=== PATIENT | female | born 1955 | race Caucasian/White ===

== ENCOUNTER → 2024-02-07 11:52 | Outpatient (REF) | payer MEDICARE, OTHER, SELFPAY | LOC: HWWDC 11:52 | PROVIDERS: ATTENDING PHYSICIAN Family Medicine | DX: Z12.31 Encounter for screening mammogram for malignant neoplasm of breast (principal) | CPT/HCPCS: 77063; 77067 ==

== ENCOUNTER → 2024-03-19 14:27 | Outpatient (REF) | payer MEDICARE, OTHER, SELFPAY | LOC: RAD 14:27 | PROVIDERS: ATTENDING PHYSICIAN Internal Medicine Rheumatology; FAMILY PHYSICIAN Family Medicine | DX: M85.89 Other specified disorders of bone density and structure, multiple sites (principal) | CPT/HCPCS: 77080 ==

== ENCOUNTER → 2024-12-12 06:56 | Outpatient (REF) | payer MEDICARE, OTHER, SELFPAY ==
[2024-12-12 08:40] LABS: ALT (SGPT) 41 U/L (0-35); AST (SGOT) 38 U/L (14-36); Albumin 4.3 g/dl (3.5-5.0); Alkaline Phosphatase 65 U/L (38-126); Blood Urea Nitrogen 21 mg/dl (7-17); Calcium 9.9 mg/dl (8.4-10.2); Carbon Dioxide 31 mmol/L (22-30); Chloride 108 mmol/L (98-107); Glucose 85 mg/dl (70-99); HDL Cholesterol 55 mg/dl; LDL Cholesterol, Calculated 139 mg/dl; Potassium 4.2 mmol/L (3.5-5.1); Sodium 141 mmol/L (135-145); Total Protein 6.9 g/dl (6.3-8.2); Very Low Density Lipoprotein 31 mg/dl (0-30); eGFR > 60.00
[2024-12-12 09:19] LABS: TSH 2.54 uIU/ml (0.47-4.68)
[2024-12-12 09:34] LABS: Glycohemoglobin (HgbA1c) 5.0 % (4.0-5.6)
== END ==
LOC: REG 06:56
PROVIDERS: ATTENDING PHYSICIAN Family Medicine
DX: I10 Essential (primary) hypertension (principal); E03.9 Hypothyroidism, unspecified; R73.9 Hyperglycemia, unspecified
CPT/HCPCS: 36415; 80053; 80061; 83036; 84439; 84443

== ENCOUNTER 2025-02-05 16:37 | Emergency (ER) | payer MEDICARE, OTHER, SELFPAY ==
[2025-02-05 16:38] VITALS: BMI 22.0
[2025-02-05 16:43] VITALS: BP 137/70
--- NOTE | 2025-02-05 17:09 | ED.GENMED ---
History of Present Illness
General
Chief Complaint: Chest Pain
Source: patient
Exam Limitations: none
Time Seen by Provider: 02/05/25 16:56
History of Present Illness
History of Present Illness:
69-year-old female with history of giant cell arteritis hypothyroidism and hypertension presents with left-sided chest discomfort. This sharp in nature and pleuritic. Of note, patient had a cataract procedure performed this morning at 11. Her
pain started at 2. She thought is indigestion but the pain did not go away and she presents here. She is on a baby aspirin but no other blood thinners. No recent travel. No leg swelling or calf pain. No other complaints at this time
Past History
Past History
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
ED Past Surgical History: Bowel resection (Perforated diverticulitis with abscess and colostomy) and Other (Parathyroidectomy)
Patient has exhibited threatening behavior?: No
PSI?: No
Social History
Tobacco: Former smoker
Alcohol: None
Personal:
Living: with family
Phy Exam
Physical Exam
Physical Exam:
General: Well-appearing female no acute respiratory distress
HEENT: Normal cephalic atraumatic heart shield over left eye: Regular rate and rhythm
Lungs: CTA Bilaterally
Ext: No cyanosis or edema.
skin: Warm, no rash
Scores
Heart Score for Chest Pain Patients
STEMI patient?: No
History: Slightly or Non-Suspicious
ECG: Normal
Age: >/= 65 years
Risk Factors: 1 or 2 Risk Factors
Troponin: </= Normal Limit
Heart Score for Chest Pain Patients: 3
Heart Score Risk: 2.5% MACE over next 6 weeks
Course
Orders/Labs/Results
Orders:
Orders
02/05/25 16:39
EKG [Electrocardiogram (*1)] Urgent
Reason for Study: Chest Pain
EKG- Treatment ONCE
02/05/25 17:08
CT Chest PE Study Urgent
Comment:
Reason For Exam: pleuritic left chest pain
02/05/25 17:11
Complete Blood Count/With Diff Urgent
Comprehensive Metabolic Panel Urgent
Troponin I Urgent
02/05/25 19:24
Troponin I Urgent
02/05/25 19:33
Electrocardiogram (*1) Urgent
Reason for Study: Other
Other Reason for Exam: Possible Sepsis
EKG- Treatment ONCE
Abnormal Lab Results
02/05/25
17:11
WBC 4.3 L 10^3/uL
(4.8-10.8)
RBC 3.77 L 10^6/uL
(4.20-5.40)
Hgb 11.8 L g/dL
(12.0-16.0)
Hct 35.3 L %
(37.0-47.0)
MCH 31.3 H pg
(27.0-31.0)
MPV 11.9 H fL
(7.4-10.4)
Neutrophils % 33.3 L %
(42.2-75.2)
Monocytes % 13.8 H %
(1.7-9.3)
Eosinophils % 6.1 H %
(0-6)
Glucose 115 H mg/dl
(70-99)
AST 40 H U/L
(14-36)
ALT 44 H U/L
(0-35)
02/05/25 17:11
02/05/25 17:11
Vital Signs
Initial and Last Documented VS:
Initial Vital Signs
Temp Pulse Resp BP Pulse Ox
98.6 F 69 18 137/70 98
02/05/25 16:43 02/05/25 16:43 02/05/25 16:43 02/05/25 16:43 02/05/25 16:43
Last Documented Vital Signs
Temp Pulse Resp BP Pulse Ox
98.6 F 76 22 136/75 96
02/05/25 16:43 02/05/25 21:00 02/05/25 21:00 02/05/25 21:00 02/05/25 21:00
MDM/Problems Addressed
Differential Diagnosis Includes:
Left-sided chest discomfort starting at 2 PM today. Consider ACS versus PE versus GI related discomfort. I believe the patient's D-dimer has a high chance of being elevated secondary to her cataract procedure today. Given the pleuritic nature of
discomfort and her age, will order CT PE study of the chest. I reviewed the EKG done through triage personally and it shows sinus rhythm with a rate of 71 no ischemic changes. Check troponin. Vital signs are stable. Patient also notes she has
been sick with upper respiratory symptoms. Consider pneumonia as a source of discomfort
*Pulse Oximetry
SaO2: 98
Oxygen Mode of Delivery: Room air
Patient hypoxic: no
*Critical Care Note
Total Time (30-74mins, 75-104mins- exclusive of procedures): Not Applicable
Update Note
Update Note:
Patient reexamined chest pain completely resolved. Both troponins are within normal range but slightly detectable. PE study negative. No sign of acute coronary syndrome or PE on today's exam. Will discharge patient have her follow-up with family
doctor and cardiology.
ED Attending Note
-
Portions of this chart may have been created with voice recognition software.� Occasional wrong word or��sound alike� substitutions may have occurred due to the inherent limitations of voice recognition software.
Discharge Plan
Departure
Patient Disposition: Home (Routine Discharge)
Date of Disposition: 02/05/25
Time of Disposition: 21:42
Patient with high blood pressure during this ER visit?: No
Discharge Problem:
Chest pain
Instructions: Chest Pain CBC Follow Up
Prescriptions:
No Action
levothyroxine 50 MCG tablet
50 mcg PO DAILY
methylprednisolone 8 MG tablet
20 mg PO BID
aspirin 81 MG tablet,chewable
81 mg PO DAILY
lisinopril 5 MG tablet
5 mg PO DAILY
duloxetine 30 MG capsule,delayed release(DR/EC)
30 mg PO HS
tocilizumab [Actemra] 200 MG/10 ML solution
162 mg SC WEEKLY
nystatin 5 ML suspension
5 ml PO QID Qty: 1 0RF
Rx Instructions:
continue use while on antibiotics
metronidazole 500 MG tablet
500 mg PO Q8 Qty: 15 0RF
sulfamethoxazole-trimethoprim 1 TABLET tablet
1 tab PO BID Qty: 40 0RF
Rx Instructions:
TAKE ONE TABLET TWICE A DAY X 5 DAYS THEN TAKE ONE TABLET ONCE A DAY
hydromorphone 2 MG tablet
2 mg PO Q6HPRN PRN (Reason: severe pain ) Qty: 15 0RF
pantoprazole 40 MG tablet,delayed release (DR/EC)
40 mg PO DAILY Qty: 30 0RF
cyclosporine [Restasis] 10 DROPS dropperette
1 drops ophthalmic (eye) BID 0RF
carboxymethylcellulose sodium [TheraTears] 6 DROPS dropperette,gel
1 drops ophthalmic (eye) DAILYPRN PRN (Reason: dry eye) 0RF
metformin 500 MG tablet
500 mg PO BID Qty: 60 0RF
Rx Instructions:
take one tablet twice a day. If you have diarrhea then decrease to daily.
furosemide 20 MG tablet
20 mg PO DAILY Qty: 5 0RF
Rx Instructions:
stop taking if swelling resolved.
hydromorphone 2 MG tablet
2 mg PO Q6HPRN PRN (Reason: flank pain) Qty: 15 0RF
ondansetron 4 MG tablet,disintegrating
4 mg PO TIDPRN PRN (Reason: nausea/vomiting) Qty: 12 0RF
Referrals:
Aleksandr Trinh MD [Family Provider, Family Practice]
Activity Restrictions/Additional Instructions:
Please return here for worsening symptoms. Follow-up with your family doctor and/or director of pulmonary unit otherwise
Interventions
Interventions:
*Risk Screen - Suicide Last Done: 02/05/25 16:43
*General Assessment Last Done: 02/05/25 16:43
*Neglect/Abuse Screening Last Done: 02/05/25 16:43
*ED- Fall Risk Assessment Last Done: 02/05/25 17:13
ED- Cardiac Assessment Last Done: 02/05/25 17:13
Discharge Date and Time
Print Language: KOREAN
[2025-02-05 17:13] VITALS: BP 143/77
[2025-02-05 17:27] LABS: Hematocrit 35.3 % (37.0-47.0); Hemoglobin 11.8 g/dL (12.0-16.0); Mean Corp Hgb Conc. 33.4 g/dL (33.0-37.0); Mean Corpuscular Volume 93.6 fL (81.0-99.0); Nucleated Red Blood Cells % 0 %; Platelet Count 187 10^3/uL (130-400); Red Cell Dist. Width 12.7 % (11.5-14.5)
[2025-02-05 17:39] LABS: ALT (SGPT) 44 U/L (0-35); AST (SGOT) 40 U/L (14-36); Albumin 4.0 g/dl (3.5-5.0); Alkaline Phosphatase 78 U/L (38-126); Blood Urea Nitrogen 13 mg/dl (7-17); Calcium 9.1 mg/dl (8.4-10.2); Carbon Dioxide 26 mmol/L (22-30); Chloride 107 mmol/L (98-107); Estimated Creatinine Clearance 80 ml/min; Glucose 115 mg/dl (70-99); Potassium 3.7 mmol/L (3.5-5.1); Sodium 137 mmol/L (135-145); Total Protein 6.7 g/dl (6.3-8.2); eGFR > 60.00
[2025-02-05 17:49] LABS: Troponin I 0.014 ng/ml
[2025-02-05 20:00] VITALS: BP 161/91
[2025-02-05 20:01] LABS: Troponin I 0.022 ng/ml
[2025-02-05 20:50] VITALS: BP 126/86
[2025-02-05 21:00] VITALS: BP 136/75
== END 2025-02-05 22:16 | disposition home or self-care (01) ==
LOC: EMR 16:37
PROVIDERS: Physician Assistant; EMERGENCY PHYSICIAN Emergency Medicine; FAMILY PHYSICIAN Family Medicine
DX: R07.89 Other chest pain (principal); E03.9 Hypothyroidism, unspecified; I10 Essential (primary) hypertension; Z87.891 Personal history of nicotine dependence; Z93.3 Colostomy status; Z98.49 Cataract extraction status, unspecified eye
CPT/HCPCS: 99284; 71275; 80053; 84484; 85025; 93005; Q9967

== ENCOUNTER → 2025-02-14 07:22 | Outpatient (REF) | payer MEDICARE, OTHER, SELFPAY | LOC: PAVMRI 07:22 | PROVIDERS: ATTENDING PHYSICIAN Specialist; FAMILY PHYSICIAN Family Medicine | DX: M25.552 Pain in left hip (principal) | CPT/HCPCS: 73721 ==

== ENCOUNTER → 2025-02-25 15:01 | Outpatient (REF) | payer MEDICARE, OTHER, SELFPAY | LOC: HWRCS 15:01 | PROVIDERS: ATTENDING PHYSICIAN Internal Medicine Cardiovascular Disease; FAMILY PHYSICIAN Family Medicine | DX: R07.89 Other chest pain (principal); R06.09 Other forms of dyspnea; I10 Essential (primary) hypertension | CPT/HCPCS: 93306 ==

== ENCOUNTER → 2025-02-27 09:12 | Outpatient (REF) | payer MEDICARE, OTHER, SELFPAY | LOC: RCS 09:12 | PROVIDERS: ATTENDING PHYSICIAN Internal Medicine Cardiovascular Disease; FAMILY PHYSICIAN Family Medicine | DX: R07.89 Other chest pain (principal); R06.09 Other forms of dyspnea; I10 Essential (primary) hypertension | CPT/HCPCS: 93017; 93350 ==

== ENCOUNTER 2025-03-04 06:16 | Day surgery (SDC) | payer MEDICARE, OTHER, SELFPAY | END 2025-03-04 10:01 | disposition home or self-care (01) | LOC: GI 06:16 | PROVIDERS: ATTENDING PHYSICIAN Surgery | DX: Z12.11 Encounter for screening for malignant neoplasm of colon (principal); K62.89 Other specified diseases of anus and rectum; Z83.719 Family history of colon polyps, unspecified | CPT/HCPCS: G0105 ==

== ENCOUNTER 2025-03-05 05:56 | Inpatient (IN) | payer MEDICARE, OTHER, SELFPAY ==
[2025-02-20 08:57] LABS: Hematocrit 41.0 % (37.0-47.0); Hemoglobin 13.4 g/dL (12.0-16.0); Mean Corp Hgb Conc. 32.7 g/dL (33.0-37.0); Mean Corpuscular Volume 97.6 fL (81.0-99.0); Platelet Count 176 10^3/uL (130-400); Red Cell Dist. Width 12.3 % (11.5-14.5)
[2025-02-20 09:04] LABS: INR 1.05; PT 14.0 Sec (11.4-14.6)
[2025-02-20 09:05] LABS: APTT 29.0 Sec (23.4-35.0)
[2025-02-20 09:20] LABS: ALT (SGPT) 43 U/L (0-35); AST (SGOT) 42 U/L (14-36); Albumin 4.4 g/dl (3.5-5.0); Alkaline Phosphatase 76 U/L (38-126); Blood Urea Nitrogen 14 mg/dl (7-17); Calcium 9.7 mg/dl (8.4-10.2); Carbon Dioxide 33 mmol/L (22-30); Chloride 105 mmol/L (98-107); Glucose 83 mg/dl (70-99); Potassium 3.9 mmol/L (3.5-5.1); Sodium 141 mmol/L (135-145); Total Protein 7.1 g/dl (6.3-8.2); eGFR > 60.00
[2025-02-20 09:28] LABS: Glycohemoglobin (HgbA1c) 5.0 % (4.0-5.6)
[2025-02-20 13:57] VITALS: BMI 22.2
--- NOTE | 2025-02-25 10:30 | PTCARENOTE ---
Abn ECG, Vicenta at Dr. Link office aware, Patient following up with Dr. Troncoso, Echo scheduled for 02/25 and Stress scheduled for 02/27.
[2025-03-05] VITALS (24 sets, daily range): BP systolic 20–138; BP diastolic 48–76; BMI 22.2
[2025-03-05] MEDS: RELISTOR 12 MG SC (06:38)
[2025-03-05] MEDS: NORMOSOL-R/PLASMALYTE-A 1000 IV ×2 (06:38→16:02)
[2025-03-05] MEDS: TYLENOL 1000 MG PO (06:38)
[2025-03-05] MEDS: NEURONTIN 600 MG PO (06:38)
--- NOTE | 2025-03-05 11:56 | W.IMMPOSTOP ---
Surgical Immed Post Op Note
-
Primary Surgeon: Linwood Link MD
Assisting Surgeon: ALISON Hutchinson; Afshan Diallo PAC; LOR Ballard
Pre-op Diagnosis: 1) colostomy 2) history of diverticulitis
Post-op Diagnosis: same
Procedure Performed: 1) robotic colostomy takedown 2) partial colectomy (resection of upper rectal stump/rectosigmoid junction) 3) loop ileostomy creation 4) flexible sigmoidoscopy
Anesthesia Type: general plus local
Specimen / Cultures: 1) colostomy 2) upper rectal stump/rectosigmoid junction
Estimated Blood Loss: 50 cc
Complications: no immediate
Operative Findings: narrow upper rectum
#19 Napoleon in pelvis.
Zhong/stents/ureteral ICG by Dr. Villa.
Will send to med surg.
[2025-03-05 13:13] LABS: Blood Urea Nitrogen 9 mg/dl (7-17); Calcium 8.1 mg/dl (8.4-10.2); Carbon Dioxide 25 mmol/L (22-30); Chloride 107 mmol/L (98-107); Estimated Creatinine Clearance 65 ml/min; Glucose 163 mg/dl (70-99); Potassium 3.5 mmol/L (3.5-5.1); Sodium 140 mmol/L (135-145); eGFR > 60.00
[2025-03-05 13:15] LABS: Hematocrit 37.4 % (37.0-47.0); Hemoglobin 12.1 g/dL (12.0-16.0); Mean Corp Hgb Conc. 32.4 g/dL (33.0-37.0); Mean Corpuscular Volume 94.7 fL (81.0-99.0); Nucleated Red Blood Cells % 0 %; Platelet Count 170 10^3/uL (130-400); Red Cell Dist. Width 12.2 % (11.5-14.5)
[2025-03-05] MEDS: DILAUDID 0.25 MG IV ×2 (13:53→15:38)
[2025-03-05] MEDS: TYLENOL 650 MG PO ×2 (16:31→20:08)
[2025-03-05] MEDS: TORADOL 10 MG IV (17:33)
--- NOTE | 2025-03-05 17:51 | PTCARENOTE ---
1600 Pt arrived from PACU. AAOX3. VSS. IVF infusing. garcia draining bloody urine. R sided ileostomy, RUQ TROY drain with sanguinous output. Oriented to room and call hernandez. admission assessment complete. bed locked and in lowest position.
[2025-03-05] MEDS: CYMBALTA DELAYED RELEASE 20 MG PO (21:06)
[2025-03-05] MEDS: LOW STRENGTH ASPIRIN 81 MG PO (21:08)
[2025-03-05] MEDS: SYNTHROID 50 MCG PO (21:08)
[2025-03-05] MEDS: NORVASC PO (21:09)
[2025-03-06] VITALS (7 sets, daily range): BP systolic 119–152; BP diastolic 66–78; PULSE 79–81; O2SAT 99
[2025-03-06] MEDS: TORADOL 10 MG IV ×4 (00:35→18:04)
[2025-03-06] MEDS: TYLENOL PO ×5 (00:40→20:32)
[2025-03-06] MEDS: NORMOSOL-R/PLASMALYTE-A 1000 IV ×2 (01:55→08:35)
[2025-03-06 07:43] LABS: Hematocrit 33.6 % (37.0-47.0); Hemoglobin 11.2 g/dL (12.0-16.0); Mean Corp Hgb Conc. 33.3 g/dL (33.0-37.0); Mean Corpuscular Volume 94.9 fL (81.0-99.0); Nucleated Red Blood Cells % 0 %; Platelet Count 170 10^3/uL (130-400); Red Cell Dist. Width 12.2 % (11.5-14.5)
[2025-03-06 08:02] LABS: Blood Urea Nitrogen 12 mg/dl (7-17); Calcium 8.9 mg/dl (8.4-10.2); Carbon Dioxide 26 mmol/L (22-30); Chloride 109 mmol/L (98-107); Estimated Creatinine Clearance 57 ml/min; Glucose 101 mg/dl (70-99); Potassium 4.3 mmol/L (3.5-5.1); Sodium 136 mmol/L (135-145); eGFR > 60.00
[2025-03-06] MEDS: TYLENOL 650 MG PO (08:35)
[2025-03-06] MEDS: CLARITIN 10 MG PO (08:35)
[2025-03-06] MEDS: COZAAR 100 MG PO (08:35)
[2025-03-06] MEDS: DILAUDID 0.25 MG IV ×2 (08:59→16:07)
--- NOTE | 2025-03-06 09:39 | W.PN.CRS1 ---
Today's Communication / Plan
-
clears
lovenox
d/c garcia/stent
OOB
Assessment/Plan
-
POD#1 1) robotic colostomy takedown 2) partial colectomy (resection of upper rectal stump/rectosigmoid junction) 3) loop ileostomy creation 4) flexible sigmoidoscopy
WBC: 8.0, RBC: 11.2 (12.1, 13.4)
-Advance diet to clears
-Maintain IVFS until tolerating po intake
-OKay to shower
-OOB with PT/OT
-OR pathology pending
-Stent removed at bedside. Okay to d/c garcia.
-Pain control: Tyelnol/Toradol pending, Diluadid PRN
-Maintain TROY until d/c
-Wound RN for ileostomy teaching
-Hold autoimmune medication for 1 week
-Start lovenox for DVT prophylaxis, TEDS/SCDS in place
Subjective Data
Procedure
03/05/2025- 1) robotic colostomy takedown 2) partial colectomy (resection of upper rectal stump/rectosigmoid junction) 3) loop ileostomy creation 4) flexible sigmoidoscopy
Subjective Data
Date of Service: March 06, 2025
Patient states she feels well. She has some soreness but otherwise her pain is controlled. Denies nausea or vomiting. Tolerating clears.
Objective Data
-
Vital Signs
Temp Pulse Resp BP Pulse Ox
98.9 F 80 18 119/66 97
03/06/25 08:00 03/06/25 08:00 03/06/25 08:00 03/06/25 08:00 03/06/25 08:00
Intake & Output
03/05/25 03/06/25 03/07/25
06:59 06:59 06:59
Intake Total 200 / 200 300 / 300
Output Total 2195 / 2195 725 / 725
Balance -1994 / - / -
Intake:
IV fluids (Total) 200 / 200 300 / 300
normosol 200 / 200
Output:
Liquid stool amount 100 / 100 350 / 350
Ileostomy 100 / 100 350 / 350
Drain Output (Total)
Right Middle Abdomen Alonzo-
Jessica
Urine, Garcia 1999 / 1999 375 / 375
Lab Results
03/06/25 06:47
03/06/25 06:47
Physical Exam
-
General: No Acute Distress and AOx3
Abdomen: Soft, Non Distended, Non Tender and Other (ileostomy warm and pink with brain in place)
Skin: Warm and Dry
Incision: Clear, Dry, Intact
--- NOTE | 2025-03-06 10:18 | CM ---
CM following re: discharge planning.
Reviewed pt's chart, met with pt and pt's at bedside.
Pt is a 69 year old female, admitted with primary dx of colostomy, history of diverticulitis. POD#1 s/p robotic colostomy takedown 2) partial colectomy (resection of upper rectal stump/rectosigmoid junction) 3) loop ileostomy creation 4) flexible
sigmoidoscopy.
Pt reports she lives with , son and his family in a 2SH, 2 steps to enter. Pt described herself as independent in all areas [employer], has a walker and a cane and does not use them. Pt reports she is very weak and she expressed her desire to go to
a SNF for a short term rehab. Both pt and her are aware that PT and OT will evaluate the pt to determine a level of care at discharge. Following SNF preferred: [facility], [facility], [facility]. CM will make a referral to requested
SNF after PT/OT evaluations and recommendations.
PT and OT evaluations pending.
PCP: Aleksandr Trinh
Pharmacy: [facility]
D/C plan: Pt requested SNF level of care. Awaiting for PT/OT evaluation and confirmation
CM will follow with discharge plan updates as hospitalization progresses
--- NOTE | 2025-03-06 11:30 | WOUNDNOTE ---
[facility] RN note: Patient s/p loop ileostomy yesterday. Stoma pink, budded with red rubber bridge in place. Appliance intact. Patient sitting in recliner chair. Skin on heels intact. Ostomy supplies given (Radha wafer # [id number], Roseanna seals, [place]
pouch # [id number]). Patient was given an ileostomy teaching folder during pre op stoma marking outpatient visit. Patient declined a Radha secure starter kit order. She knows how to change an ostomy appliance as she had a colostomy prior to surgery.
Reviewed appliance change including using an Roseanna seal with patient. Patient's pouch emptied for liquid dark brown effluent. Appliance change due on Sunday whether home with or SNF or here.
--- NOTE | 2025-03-06 11:30 | WOUNDNOTE ---
[facility] RN note: Patient s/p loop ileostomy yesterday. Stoma pink, budded with red rubber bridge in place. Appliance intact. Patient sitting in recliner chair. Skin on heels intact. Ostomy supplies given (Radha wafer # [id number], Roseanna seals, [place]
pouch # [id number]). Patient was given an ileostomy teaching folder during pre op stoma marking outpatient visit. Patient declined a Radha secure starter kit order. She knows how to change an ostomy appliance as she had a colostomy prior to surgery.
Reviewed appliance change including using an Roseanna seal with patient. Patient's pouch emptied for liquid dark brown effluent. Appliance change due on Sunday whether home with VN or here.
--- NOTE | 2025-03-06 14:01 | PTOTSP ---
pt currently requires supervision to no assistance to complete simple ADLs, functional transfers, ambulation. no acute OT needs identified at this time, will sign off.
[2025-03-06] MEDS: LOVENOX 40 MG SC (16:06)
[2025-03-06] MEDS: NORMOSOL-R/PLASMALYTE-A IV (20:31)
[2025-03-06] MEDS: NORVASC 5 MG PO (22:10)
[2025-03-06] MEDS: LOW STRENGTH ASPIRIN 81 MG PO (22:10)
[2025-03-06] MEDS: SYNTHROID 50 MCG PO (22:10)
[2025-03-06] MEDS: CYMBALTA DELAYED RELEASE 20 MG PO (22:10)
[2025-03-06] MEDS: DILAUDID 0.5 MG IV (22:13)
[2025-03-07] MEDS: TORADOL 10 MG IV ×4 (01:03→16:55)
[2025-03-07] MEDS: TYLENOL PO ×6 (01:04→19:59)
[2025-03-07] MEDS: DILAUDID 0.5 MG IV ×2 (03:26→23:34)
[2025-03-07 06:00] VITALS: BMI 21.8
[2025-03-07 07:30] VITALS: BP 113/66
[2025-03-07 07:30] LABS: Hematocrit 38.2 % (37.0-47.0); Hemoglobin 11.9 g/dL (12.0-16.0); Mean Corp Hgb Conc. 31.2 g/dL (33.0-37.0); Mean Corpuscular Volume 99.7 fL (81.0-99.0); Nucleated Red Blood Cells % 0 %; Platelet Count 169 10^3/uL (130-400); Red Cell Dist. Width 12.6 % (11.5-14.5)
[2025-03-07 08:06] LABS: Blood Urea Nitrogen 13 mg/dl (7-17); Calcium 9.2 mg/dl (8.4-10.2); Carbon Dioxide 27 mmol/L (22-30); Chloride 108 mmol/L (98-107); Estimated Creatinine Clearance 65 ml/min; Glucose 80 mg/dl (70-99); Potassium 3.7 mmol/L (3.5-5.1); Sodium 135 mmol/L (135-145); eGFR > 60.00
[2025-03-07] MEDS: CLARITIN 10 MG PO (08:39)
[2025-03-07] MEDS: COZAAR 100 MG PO (08:39)
--- NOTE | 2025-03-07 09:54 | W.PN.CRS1 ---
Addendum entered and electronically signed by Robert Michelle MD 03/07/25 10:06:
I saw and examined the patient independently.
The Pain Management Specialist's note was reviewed and I agree with the note, assessment and plan except where noted below.
Comment: This is a 69-year-old female postoperative day 2 from a robotic colostomy takedown, partial colectomy with colorectal anastomosis and upstream diverting loop ileostomy creation. Doing well, expected postoperative course.
Regular diet
Anticipate discharge tomorrow without a drain.
Original Note:
Today's Communication / Plan
-
regular diet
dressing change later today
Assessment/Plan
-
POD#2 1) robotic colostomy takedown 2) partial colectomy (resection of upper rectal stump/rectosigmoid junction) 3) loop ileostomy creation 4) flexible sigmoidoscopy
WBC: 7.7 (8.0), RBC: 11.9 (11.2, 12.1, 13.4)
-Advance diet to regular
-OKay to shower
-OOB with PT/OT
-OR pathology pending
-Voiding post garcia removal
-Pain control: Tyelnol/Toradol pending, Diluadid PRN
-Maintain TROY until d/c
-Wound RN for ileostomy teaching
-Hold autoimmune medication for 1 week
-Lovenox for DVT prophylaxis, TEDS/SCDS in place
-Colostomy site dressing to be changed today
-Dispo: anticipate tomorrow
Subjective Data
Procedure
03/05/2025- 1) robotic colostomy takedown 2) partial colectomy (resection of upper rectal stump/rectosigmoid junction) 3) loop ileostomy creation 4) flexible sigmoidoscopy
Subjective Data
Date of Service: March 07, 2025
Patient states she is very hungry. Her pain is more controlled today. She has flatus and some liquid stool. Denies nausea or vomiting.
Objective Data
-
Vital Signs
Temp Pulse Resp BP Pulse Ox
98.1 F 71 16 113/66 96
03/07/25 07:30 03/07/25 07:30 03/07/25 07:30 03/07/25 07:30 03/07/25 07:30
Intake & Output
03/06/25 03/07/25 03/08/25
06:59 06:59 06:59
Intake Total 200 / 200 1880 / 1880 480 / 480
Output Total 2195 / 2195 2540 / 2540
Balance -1994 / -1994 - / -660 480 / 480
Intake:
Oral fluids 1580 / 1580 480 / 480
IV fluids (Total) 200 / 200 300 / 300
normosol 200 / 200
Output:
Liquid stool amount 100 / 100 1400 / 1400
Ileostomy 100 / 100 1400 / 1400
Drain Output (Total)
Right Middle Abdomen Alonzo-
Jessica
Urine, Garcia 1999 / 1999 375 / 375
Urine, Voided 700 / 700
Other:
Number of approximated MODERATE 2
amounts of urine
Lab Results
03/07/25 06:00
03/07/25 06:00
Physical Exam
-
General: No Acute Distress and AOx3
Abdomen: Soft, Non Distended, Non Tender and Other (ostomy warm and pink with flatus and liquid stool)
Skin: Warm and Dry
Wound: No Signs of Infection
Incision: Clear, Dry, Intact
[2025-03-07] MEDS: DILAUDID 0.25 MG IV ×2 (14:42→20:03)
[2025-03-07 15:25] VITALS: BP 108/69
[2025-03-07] MEDS: LOVENOX 40 MG SC (16:55)
[2025-03-07] MEDS: LOW STRENGTH ASPIRIN 81 MG PO (22:06)
[2025-03-07] MEDS: SYNTHROID 50 MCG PO (22:06)
[2025-03-07] MEDS: CYMBALTA DELAYED RELEASE 20 MG PO (22:06)
[2025-03-07] MEDS: NORVASC 5 MG PO (22:06)
[2025-03-07 23:17] VITALS: BP 116/74
[2025-03-08] MEDS: TYLENOL PO ×6 (00:46→20:25)
[2025-03-08] MEDS: TORADOL 10 MG IV ×5 (00:52→23:37)
[2025-03-08] MEDS: DILAUDID 0.25 MG IV (05:34)
[2025-03-08 06:00] VITALS: BMI 21.6
[2025-03-08 07:22] VITALS: BP 122/71
[2025-03-08] MEDS: COZAAR 100 MG PO (08:19)
[2025-03-08] MEDS: CLARITIN 10 MG PO (08:19)
--- NOTE | 2025-03-08 10:14 | W.PN.CRS1 ---
Today's Communication / Plan
-
Pain management
Dispo planning
Assessment/Plan
-
69 yo female with a h/o diverticulitis and colostomy POD#3 1) robotic colostomy takedown 2) partial colectomy (resection of upper rectal stump/rectosigmoid junction) 3) loop ileostomy creation 4) flexible sigmoidoscopy
AFVSS
WBC normal. H/H stable
Good bowel recovery, not all stoma outputs accounted for in outputs as she has been emptying herself
Plan:
-Continue regular diet
-TROY removed at bedside
-Okay to shower
-OOB with PT/OT
-OR pathology pending
-Pain control: Tyelnol/Toradol pending, Diluadid po and IV PRN (oxycodone allergy)
-Wound RN following
-Hold autoimmune medication for 1 week
-Follow outputs closely, may need Imodium if high outputs from ileostomy
-Lovenox for DVT prophylaxis, TEDS/SCDS in place
-Colostomy site dressing changed at bedside
Anticipate discharge later tonight vs more likely tomorrow once pain well managed. Oral diluadid added.
Subjective Data
Procedure
03/05/2025- 1) robotic colostomy takedown 2) partial colectomy (resection of upper rectal stump/rectosigmoid junction) 3) loop ileostomy creation 4) flexible sigmoidoscopy
Subjective Data
Date of Service: March 08, 2025
Pt seen and examined at bedside with Dr. Michelle. Herberties n/v. Tolerating diet. Changing stoma appliance herself this am. Having some difficulties managing her pain but improving from yesterday.
Objective Data
-
Vital Signs
Temp Pulse Resp BP Pulse Ox
98.1 F 70 16 122/71 97
03/08/25 07:22 03/08/25 07:22 03/08/25 07:22 03/08/25 07:22 03/08/25 07:22
Intake & Output
03/07/25 03/08/25 03/09/25
06:59 06:59 06:59
Intake Total 1880 / 1880 480 / 480
Output Total 2540 / 2540 575 / 575
Balance -660 / -660 -95 / -95
Intake:
Oral fluids 1580 / 1580 480 / 480
IV fluids (Total) 300 / 300
Output:
Liquid stool amount 1400 / 1400 475 / 475
Ileostomy 1400 / 1400 475 / 475
Drain Output (Total) 65 100 / 100
Right Middle Abdomen Alonzo- 100 / 100
Jessica
Urine, Zhong 375 / 375
Urine, Voided 700 / 700
Other:
Number of approximated MODERATE 2 1
amounts of urine
Number of approximated LARGE 2
amounts of urine
Physical Exam
-
General: No Acute Distress and AOx3
Abdomen: Soft, Non Distended, Non Tender and Other (right abd ileostomy warm and pink with flatus and liquid stool. Prior left stoma site clean, incision with minimal expected SSF.)
Skin: Warm and Dry
Wound: No Signs of Infection and Other (TROY with SSF)
Incision: Clear, Dry, Intact
[2025-03-08] MEDS: DILAUDID PO (12:07)
[2025-03-08 12:21] LABS: Hematocrit 40.6 % (37.0-47.0); Hemoglobin 13.3 g/dL (12.0-16.0); Mean Corp Hgb Conc. 32.8 g/dL (33.0-37.0); Mean Corpuscular Volume 95.5 fL (81.0-99.0); Nucleated Red Blood Cells % 0 %; Platelet Count 173 10^3/uL (130-400); Red Cell Dist. Width 12.3 % (11.5-14.5)
[2025-03-08 12:33] LABS: Blood Urea Nitrogen 19 mg/dl (7-17); Calcium 9.3 mg/dl (8.4-10.2); Carbon Dioxide 27 mmol/L (22-30); Chloride 110 mmol/L (98-107); Estimated Creatinine Clearance 65 ml/min; Glucose 107 mg/dl (70-99); Potassium 3.9 mmol/L (3.5-5.1); Sodium 140 mmol/L (135-145); eGFR > 60.00
[2025-03-08 15:00] VITALS: BP 122/70
[2025-03-08] MEDS: LOVENOX 40 MG SC (17:02)
[2025-03-08] MEDS: CYMBALTA DELAYED RELEASE 20 MG PO (21:19)
[2025-03-08] MEDS: DILAUDID 2 MG PO (21:19)
[2025-03-08] MEDS: SYNTHROID 50 MCG PO (21:19)
[2025-03-08] MEDS: LOW STRENGTH ASPIRIN 81 MG PO (21:19)
[2025-03-08] MEDS: NORVASC 5 MG PO (21:59)
[2025-03-08 23:15] VITALS: BP 109/76
[2025-03-09] MEDS: DILAUDID 2 MG PO ×3 (03:55→13:20)
[2025-03-09] MEDS: TYLENOL PO ×4 (04:00→11:14)
[2025-03-09 06:00] VITALS: BMI 21.7
[2025-03-09] MEDS: TORADOL 10 MG IV (06:14)
[2025-03-09 07:40] VITALS: BP 111/67
[2025-03-09 07:44] LABS: Hematocrit 37.5 % (37.0-47.0); Hemoglobin 12.3 g/dL (12.0-16.0); Mean Corp Hgb Conc. 32.8 g/dL (33.0-37.0); Mean Corpuscular Volume 96.6 fL (81.0-99.0); Platelet Count 165 10^3/uL (130-400); Red Cell Dist. Width 12.2 % (11.5-14.5)
[2025-03-09 08:28] LABS: Blood Urea Nitrogen 22 mg/dl (7-17); Calcium 9.2 mg/dl (8.4-10.2); Carbon Dioxide 25 mmol/L (22-30); Chloride 111 mmol/L (98-107); Estimated Creatinine Clearance 57 ml/min; Glucose 85 mg/dl (70-99); Potassium 3.8 mmol/L (3.5-5.1); Sodium 137 mmol/L (135-145); eGFR > 60.00
[2025-03-09] MEDS: COZAAR 100 MG PO (09:00)
[2025-03-09] MEDS: CLARITIN 10 MG PO (09:00)
--- NOTE | 2025-03-09 10:32 | W.PN.CRS1 ---
Today's Communication / Plan
-
Discharge.
Assessment/Plan
-
POD 4.
1. tolerating diet with stoma function.
2. vitals and labs fine.
3. ok for discharge with VNs.
Subjective Data
Procedure
03/05/2025- 1) robotic colostomy takedown 2) partial colectomy (resection of upper rectal stump/rectosigmoid junction) 3) loop ileostomy creation 4) flexible sigmoidoscopy
Subjective Data
Date of Service: March 09, 2025
No complaints. Tolerating diet.
Objective Data
-
Vital Signs
Temp Pulse Resp BP Pulse Ox
98.0 F 78 16 111/67 98
03/09/25 07:40 03/09/25 09:00 03/09/25 07:40 03/09/25 09:00 03/09/25 07:40
Intake & Output
03/08/25 03/09/25 03/10/25
06:59 06:59 06:59
Intake Total 480 / 480 1020 / 1020 480 / 480
Output Total 575 / 575 550 / 550 150 / 150
Balance -95 / -95 470 / 470 330 / 330
Intake:
Oral fluids 480 / 480 1020 / 1020 480 / 480
Output:
Liquid stool amount 475 / 475 550 / 550 150 / 150
Ileostomy 475 / 475 550 / 550 150 / 150
Drain Output (Total) 100 / 100
Right Middle Abdomen Alonzo- 100 / 100
Jessica
Other:
Number of approximated MODERATE 1 2 2
amounts of urine
Number of approximated LARGE 2 4
amounts of urine
Lab Results
03/09/25 05:55
03/09/25 05:55
Physical Exam
-
General: No Acute Distress
Chest: Clear
Cardiovascular: Regular Rate & Rhythm
Abdomen: Non Distended, Tender (mild incisional) and Other (stoma viable with output)
Extremities: No Calf Tenderness
[2025-03-09 11:05] LABS: ALT (SGPT) 63 U/L (0-35); AST (SGOT) 48 U/L (14-36); Albumin 3.6 g/dl (3.5-5.0); Alkaline Phosphatase 80 U/L (38-126); Total Protein 5.9 g/dl (6.3-8.2)
--- NOTE | 2025-03-09 11:32 | VNURNOTE ---
Home Health Liaison met with patient at bedside to discuss [facility] nurse/therapy, visits, schedule and homebound status. Patient is agreeable and understands that visits at home will be 2-3 x per week to assess and teach medical management. Patient
is aware that [facility] will contact them for start of care within a few days after discharge from . Provided contact number for [facility].
[facility] referral accepted in [facility].
--- NOTE | 2025-03-09 12:40 | WOUNDNOTE ---
[facility] RN note: Patient and nurse changed her ostomy appliance last night d/t pouch from wafer. New appliance intact. Stoma pink and functioning for liquid brown stool. Red rubber stoma bridge in place. Patient changed her mind and now would
like a Radha ostomy secure starter kit. Will order for patient. Skin on heels intact. Coccyx blanchable red with dry skin. Air chair cushion given. Patient for discharge today with VN follow up. Patient independent in pouch emptying.
[2025-03-09] MEDS: TORADOL IV (12:43)
[2025-03-09 12:52] VITALS: BP 114/69
--- NOTE | 2025-03-09 13:45 | PTCARENOTE ---
Went over with patient the change of her discharge medication dosing for her Dilaudid and the importance of using a pill splitter so she takes the appropriate dose. Patient has used a pill splitter before but went over how it is used.
--- NOTE | 2025-03-09 13:47 | CM ---
Patient seen at bedside in [address] [place] [address]. [facility] completed and signed referral to [facility] at patient request. [facility] accepted via tt. Patient for discharge home today. CM will continue to follow for discharge planning needs.
PLan; home with [facility]
--- NOTE | 2025-03-09 17:13 | WOUNDNOTE ---
[facility] RN note: allison Garcia and spoke with Elisha, ordered patient a Radha ostomy secure starter kit.
== END 2025-03-09 14:19 | disposition home health service (06) | DRG 330 ==
LOC: 2 SOUTH 05:56
PROVIDERS: Physician Assistant; Registered Nurse; ADMITTING PHYSICIAN Surgery; FAMILY PHYSICIAN Family Medicine
PROC: 0D1B4Z4 Bypass Ileum to Cutaneous, Percutaneous Endoscopic Approach (ICD-10-PCS; 2025-03-06)
PROC: 8E0W4CZ Robotic Assisted Procedure of Trunk Region, Percutaneous Endoscopic Approach (ICD-10-PCS; 2025-03-06)
PROC: 0DBN0ZZ Excision of Sigmoid Colon, Open Approach (ICD-10-PCS; 2025-03-06)
PROC: 0DBP4ZZ Excision of Rectum, Percutaneous Endoscopic Approach (ICD-10-PCS; 2025-03-06)
DX: Z43.3 Encounter for attention to colostomy (principal); D84.9 Immunodeficiency, unspecified; M06.9 Rheumatoid arthritis, unspecified; M31.6 Other giant cell arteritis; K21.9 Gastro-esophageal reflux disease without esophagitis
CPT/HCPCS: 36415; 80048; 80053; 82248; 83036; 85025; 85027; 85610; 85730; 86850; 86900; 86901; 88304; 88307; 88311; 93005; 97162; 97166; J1335

== ENCOUNTER 2025-03-16 14:57 | Inpatient (IN) | payer MEDICARE, OTHER, SELFPAY ==
[2025-03-16] VITALS (8 sets, daily range): BP systolic 96–160; BP diastolic 62–94; BMI 22.6; BMI 21.8
[2025-03-16 11:01] LABS: Hematocrit 39.1 % (37.0-47.0); Hemoglobin 12.9 g/dL (12.0-16.0); Mean Corp Hgb Conc. 33.0 g/dL (33.0-37.0); Mean Corpuscular Volume 95.8 fL (81.0-99.0); Nucleated Red Blood Cells % 0 %; Platelet Count 256 10^3/uL (130-400); Red Cell Dist. Width 12.2 % (11.5-14.5)
[2025-03-16 11:12] LABS: ALT (SGPT) 46 U/L (0-35); AST (SGOT) 29 U/L (14-36); Albumin 4.4 g/dl (3.5-5.0); Alkaline Phosphatase 85 U/L (38-126); Blood Urea Nitrogen 13 mg/dl (7-17); Calcium 9.8 mg/dl (8.4-10.2); Carbon Dioxide 22 mmol/L (22-30); Chloride 103 mmol/L (98-107); Glucose 118 mg/dl (70-99); Potassium 4.2 mmol/L (3.5-5.1); Sodium 133 mmol/L (135-145); Total Protein 7.2 g/dl (6.3-8.2); eGFR > 60.00
--- NOTE | 2025-03-16 12:38 | ED.GENMED ---
History of Present Illness
<Rigoberto Penny MD, Resident - Last Filed: 03/16/25 14:23>
General
Chief Complaint: Abdominal Symptoms
Source: patient
Time Seen by Provider: 03/16/25 12:34
History of Present Illness
History of Present Illness:
Patient is a 69-year-old female PMH of perforated diverticulitis s/p sigmoidectomy and colostomy (July 2019) and more recent colostomy reversal with ileostomy creation (03/05/2025) who presents to the [facility] for concern of ileostomy
infection. One week after surgery, patient developed an indurated mass deep to her ileostomy, abdominal pain, and drainage from the ileostomy and an adjacent drainage tract. Patient presented to Dr. Link's office for evaluation of these issues
on Sunday (03/13), and she underwent an I&D of the drainage tract adjacent to the ileostomy in the office. At that time, patient was started on oral antibiotics (Bactrim). The suspected infection persisted over the weekend, and it was evaluated by
Dr. Link in the office today. Patient was subsequently referred to the ED for further evaluation and treatment of the suspected ileostomy infection. At the bedside, patient endorses fatigue, mild headache, and abdominal pain. Denies chest pain,
shortness of breath, fever, or chills.
Past History
<Rigoberto Penny MD, Resident - Last Filed: 03/16/25 14:23>
Past History
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
ED Past Surgical History: Bowel resection (Perforated diverticulitis with abscess and colostomy) and Other (Parathyroidectomy)
Patient has exhibited threatening behavior?: No
PSI?: No
Social History
Tobacco: Former smoker
Alcohol: None
Personal:
Living: with family
Review of Systems
<Rigoberto Pneny MD, Resident - Last Filed: 03/16/25 14:23>
Review of Systems
Constitutional: Reports fatigue; Denies fever or chills
Respiratory: Denies cough or trouble breathing
Cardiac: Denies chest pain
ABD/GI: Reports abdominal pain; Denies nausea, vomiting or diarrhea
: Reports frequency (Chronic, no recent changes); Denies dysuria or urgency
Neurological: Reports headache (Mild)
Phy Exam
<Rigoberto Penny MD, Resident - Last Filed: 03/16/25 14:23>
Physical Exam
Physical Exam:
General: NAD. Conversant.
GI: Ileostomy bag in place in RLQ. Indurated, tender mass deep to the ileostomy. Yellow-green abdominal contents draining into ileostomy bag. Site of I&D nonerythematous, nonedematous, without drainage. Upper and left-sided abdomen nontender.
Nondistended abdomen.
CV: RRR. S1, S2 noted. No M/R/G.
Pulm: CTAB. No wheezes or crackles.
Neuro: A&O x 3. NFD. CN II through XII grossly intact
Course
<Rigoberto Penny MD, Resident - Last Filed: 03/16/25 14:23>
Orders/Labs/Results
Orders:
Orders
03/16/25 10:40
Complete Blood Count/With Diff Urgent
Comprehensive Metabolic Panel Urgent
Lactate Level [Lactic Acid] Urgent
03/16/25 12:39
CT Abd/pelvis W Iv Cont Urgent
Comment: w/ IV, oral, and rectal contrast, per CRS
Reason For Exam: infected ileostomy
03/16/25 12:56
Iohexol [Omnipaque] See Protocol PO NOW STA
03/16/25 12:58
Iohexol [Omnipaque] See Protocol PO NOW STA
03/16/25 13:09
Piperacillin/Tazo 4.5 Gram [Zosyn] 4.5 gram in 100 ml IV NOW
Abnormal Lab Results
03/16/25
10:40
RBC 4.08 L 10^6/uL
(4.20-5.40)
MCH 31.6 H pg
(27.0-31.0)
MPV 11.7 H fL
(7.4-10.4)
Absolute Monos (auto) 0.8 H 10^3/uL
(0.1-0.6)
Monocytes % 10.9 H %
(1.7-9.3)
Sodium 133 L mmol/L
(135-145)
Glucose 118 H mg/dl
(70-99)
ALT 46 H U/L
(0-35)
03/16/25 10:40
03/16/25 10:40
Vital Signs
Initial and Last Documented VS:
Initial Vital Signs
Temp Pulse Resp BP Pulse Ox
98.4 F 90 19 160/94 99
03/16/25 10:23 03/16/25 10:23 03/16/25 10:23 03/16/25 10:23 03/16/25 10:23
Last Documented Vital Signs
Temp Pulse Resp BP Pulse Ox
97.7 F 83 15 107/83 97
03/16/25 12:05 03/16/25 14:00 03/16/25 14:00 03/16/25 14:00 03/16/25 14:00
Genilt;Jose Montana, DO - Last Filed: 03/16/25 14:00>
Orders/Labs/Results
Orders:
Orders
03/16/25 10:40
Complete Blood Count/With Diff Urgent
Comprehensive Metabolic Panel Urgent
Lactate Level [Lactic Acid] Urgent
03/16/25 12:39
CT Abd/pelvis W Iv Cont Urgent
Comment: w/ IV, oral, and rectal contrast, per CRS
Reason For Exam: infected ileostomy
03/16/25 12:56
Iohexol [Omnipaque] See Protocol PO NOW STA
03/16/25 12:58
Iohexol [Omnipaque] See Protocol PO NOW STA
03/16/25 13:09
Piperacillin/Tazo 4.5 Gram [Zosyn] 4.5 gram in 100 ml IV NOW
Abnormal Lab Results
03/16/25
10:40
RBC 4.08 L 10^6/uL
(4.20-5.40)
MCH 31.6 H pg
(27.0-31.0)
MPV 11.7 H fL
(7.4-10.4)
Absolute Monos (auto) 0.8 H 10^3/uL
(0.1-0.6)
Monocytes % 10.9 H %
(1.7-9.3)
Sodium 133 L mmol/L
(135-145)
Glucose 118 H mg/dl
(70-99)
ALT 46 H U/L
(0-35)
03/16/25 10:40
03/16/25 10:40
Vital Signs
Initial and Last Documented VS:
Initial Vital Signs
Temp Pulse Resp BP Pulse Ox
98.4 F 90 19 160/94 99
03/16/25 10:23 03/16/25 10:23 03/16/25 10:23 03/16/25 10:23 03/16/25 10:23
Last Documented Vital Signs
Temp Pulse Resp BP Pulse Ox
97.7 F 83 15 107/83 97
03/16/25 12:05 03/16/25 14:00 03/16/25 14:00 03/16/25 14:00 03/16/25 14:00
<Rigoberto Penny MD, Resident - Last Filed: 03/16/25 14:23>
MDM/Problems Addressed
Differential Diagnosis Includes:
Ileostomy infection
Cellulitis
Peritonitis
Diverticulitis
Appendicitis
MDM/Problems Addressed:
Assessment: Patient is a 69-year-old female with PMH of recent colostomy reversal end ileostomy creation (03/05/2025) who was referred to the [facility] by Dr. Link for suspected ileostomy infection. Since surgery on 03/05, patient has
developed an indurated mass around her ileostomy, odorous drainage from the ileostomy and adjacent tract to her skin, fatigue, and headache. Patient underwent incision and drainage of the abdominal drainage tract on Sunday at Dr. Link's office
and was started on Bactrim. Patient was seen in follow-up with Dr. Link in the outpatient setting today, where he suspected an ileostomy infection and referred patient to the ED. HTN (160/94), otherwise AFVSS. Physical exam remarkable for
tender, indurated mass around ileostomy. Suspect ileostomy infection.
Plan:
#Abdominal pain
Labs: CBC, CMP, lactate
Imaging: CTAP w/ IV, oral, and rectal contrast
Piperacillin�tazobactam 4.5 g IV
Colorectal surgery (Dr. Link) following
<Rigoberto Penny MD, Resident - Last Filed: 03/16/25 14:23>
*Pulse Oximetry
SaO2: 100
Nasal Cannula flow liters per minute: 100
Oxygen Mode of Delivery: Room air
Patient hypoxic: no
*Critical Care Note
Total Time (30-74mins, 75-104mins- exclusive of procedures): Not Applicable
ED Attending Note
<Rigoberto Penny MD, Resident - Last Filed: 03/16/25 14:23>
-
Portions of this chart may have been created with voice recognition software.� Occasional wrong word or��sound alike� substitutions may have occurred due to the inherent limitations of voice recognition software.
<Joes Montana, DO - Last Filed: 03/16/25 14:00>
ED Attending Note
Patient seen and examined by attending physician: Yes
I performed the substantive portion of visit, reviewed & personally made and approve the management plan that is documented in note by myself or DAVID.: Yes
I performed a history and physical exam of patient and discussed management with resident, I reviewed resident's note and agree with documented findings and plan of care.: Yes
ED Attending Note:
69-year-old female presents to the ER as referred from colorectal office for further evaluation of concern for wound infection status post colostomy reversal with ileostomy creation. Patient had area adjacent to her stoma drained in the office on
Sunday and she has been on oral antibiotics without any improvement in symptoms, and in fact worsening pain and swelling in her right lower quadrant. She reports she has been able to express purulent material into her ileostomy bag on palpation of
her abdomen. She denies fevers. She has had adequate output from her ileostomy. She did resume taking her immunosuppressant medication on for treatment of temporal arteritis. Vital signs reviewed, patient is awake, alert, appears
uncomfortable but in no acute distress, sallow complexion, mucous membranes moist, abdomen is soft with focal pain lateral and inferior to her ileostomy in the right lower quadrant, stoma is pink and well-perfused with copious green succus present
in the bag, skin inferolateral to the ileostomy is firm and indurated with localized pain on palpation, extremities without edema, GCS is 15. Patient is declining need for analgesia at the current time. Patient given broad-spectrum antibiotics. I
reviewed lab results with resident physician. I reviewed patient presentation with operative surgeon, Dr. Link, who would agree with plan for admission for IV antibiotics and further treatment of likely subcuteous purulent collection.
Discharge Plan
Departure
Patient Disposition: Admit
Date of Disposition: 03/16/25
Time of Disposition: 14:08
Admit to: Med/Surg
Presentation/result/management discussed w/ accepting MD/DO: Hospitalist
Patient with high blood pressure during this ER visit?: Yes
Discharge Problem:
Abdominal infection
Prescriptions:
No Action
levothyroxine 50 MCG tablet
50 mcg PO HS
aspirin 81 MG tablet,chewable
81 mg PO HS
Actemra 200 MG/10 ML solution
162 mg SC Q4W
cyanocobalamin (vitamin B-12) 1,000 mcg Tablet
1,000 mcg PO DAILY Qty: 0
amlodipine 5 mg Tablet
5 mg PO HS
calcium carbonate [Calcium 500] 500 mg calcium (1,250 mg) Tablet
500 mg PO BID Qty: 0
losartan 100 mg Tablet
100 mg PO DAILY
loratadine [Claritin] 10 mg Tablet
10 mg PO DAILY
duloxetine 20 mg Capsule,Delayed Release(Dr/Ec)
20 mg PO HS
Compound Eye Drop
1 dose BOTH EYES DAILY
mometasone
1 mg intranasal DAILY
Artificial Tears (cmc) 1 % Drops
1 drp BOTH EYES BIDPRN PRN (Reason: dry eye)
Theragen Tablet
1 tab PO DAILY
hydromorphone [Dilaudid] 4 mg tablet
4 mg PO Q6HPRN PRN (Reason: SEVERE Pain)
sulfamethoxazole-trimethoprim [Bactrim DS] 800-160 mg Tablet
1 tab PO BID
Rx Instructions:
FOR 10 DAYS STARTING 03/13/25
Referrals:
Aleksandr Trinh MD [Family Provider, Family Practice]
Interventions
Interventions:
*Risk Screen - Suicide Last Done: 03/16/25 10:23
*General Assessment Last Done: 03/16/25 10:23
*Neglect/Abuse Screening Last Done: 03/16/25 10:23
*ED- Fall Risk Assessment Last Done: 03/16/25 12:08
*ED COVID-19 Vaccine History Last Done: 03/16/25 12:08
*ED Influenza Vaccine History Last Done: 03/16/25 12:08
RI-Iiaauc-Olcahcabdp Assessment Last Done: 03/16/25 12:10
Discharge Date and Time
Print Language: [place]IZ[place]
[2025-03-16] MEDS: OMNIPAQUE 50 ML PO (12:59)
[2025-03-16] MEDS: ZOSYN 100 IV (13:48)
--- NOTE | 2025-03-16 14:18 | HPS.HSE ---
Addendum entered and electronically signed by Janet Cunningham MD 03/16/25 15:28:
This is an addendum to H&P written by Patricia Davis on 03/16/2025. �Patient seen and examined independently with CORPORATE RISK ANALYST.
69-year-old female past medical history of sigmoid diverticulitis status post sigmoidectomy and colostomy 5 years ago and more recently colostomy takedown, partial colectomy with resection of upper rectal stump/rectosigmoid junction and loop
ileostomy creation on 03/06, giant cell arthritis, pyoderma gangrenosum no longer on treatment currently, hypertension, depression, presenting with sensation of mass at the site of the ileostomy and increased drainage and discomfort around the site.
�She went to see Dr. Link on 03/13 who performed I&D and discharged on Bactrim. �She followed up in the office today and was told to come in by Dr. Link due to concern for ileostomy infection.
She also developed numbness and tingling in her lower calf and below over the past few days without any back pain or sciatica symptoms.
Vital signs unremarkable.
Labs unremarkable.
Concern for ileostomy infection. �Zosyn started. �CT abdomen pelvis pending. �Colorectal surgery consulted.
GCA immunosuppressants Actemra and leflunomide being held due to infection.
Patient has numbness and tingling in her legs seems to be peripheral neuropathy could be secondary to GCA that is flaring as a result of stopping immunosuppressants. Continue to monitor.
Original Note:
Family Physician
-
Family Physician: Aleksandr Trinh
Chief Complaint
-
ileostomy infection
History of Present Illness
69-year-old female PMH of perforated diverticulitis s/p sigmoidectomy and colostomy (July 2019) and more recent colostomy reversal with ileostomy creation (03/05/2025) who presents to the [facility] for concern of ileostomy infection. few
days after the discharge, patient felt a mass deep in her ileostomy. since then she noticed abdominal discomfort as well as some clear drainage. she feels, her abdomen is indurated around the ileostomy site. Patient presented to Dr. Link's
office for evaluation of these issues on Sunday (03/13), and she underwent an I&D of the drainage tract adjacent to the ileostomy in the office. At that time, patient was started on oral antibiotics (Bactrim). she was evaluated by Dr. Link in the
office today. Patient was subsequently referred to the ED for further evaluation and treatment of the suspected ileostomy infection. At the bedside, patient endorses fatigue, mild headache, and abdominal pain. Denies chest pain, shortness of
breath, fever, or chills. denied dysuria or hematuria.
Patient received a dose of Zosyn in ER. Admitted for further
Medical History
Past Medical History
Past Medical History: Reports Other
Additional Past Medical History:
Diverticulitis cellulitis type, poorly Dermagran, temporal arteritis, GERD, hypothyroidism, hyperparathyroidism, fibromyalgia, anxiety, OA, nephrolithiasis
Past Surgical History: Reports Other
Additional Past Surgical History:
Colostomy, parathyroidectomy, sigmoid resection due to diverticular abscess and colostomy
Social History
Tobacco: Former Smoker
Alcohol: None
Drug: None
Family History
Family History: Not pertinent
Allergies / Home Medications
Allergies reflects when Allergies were last updated in [email or web address].
Home Medications with original date entered in [email or web address]
Allergy/Medication List:
Allergies
Allergy/AdvReac Type Severity Reaction Status Date / Time
nut - unspecified Allergy Intermediate Swelling Verified 03/05/25 06:26
adhesive tape Allergy Itching, Verified 03/05/25 06:26
redness
azithromycin (From Zithromax) Allergy face Verified 03/05/25 06:26
swelling
oxycodone Allergy face Verified 03/05/25 06:26
swelling
shellfish derived Allergy Swelling Verified 03/05/25 13:15
shellfish Allergy Swelling Uncoded 03/05/25 06:26
Home Medications
aspirin 81 mg chewable tablet 81 mg PO HS Blood Clot Prevention/Tx 07/26/19
levothyroxine 50 mcg tablet 50 mcg PO HS Thyroid 07/26/19
tocilizumab 200 mg/10 mL (20 mg/mL) intravenous solution (Actemra) 162 mg SC Q4W 07/26/19
Compound Eye Drop 1 dose BOTH EYES DAILY 02/26/25
amlodipine 5 mg tablet 5 mg PO HS Blood Pressure 02/26/25
calcium carbonate 500 mg PO BID Supplement ##0 02/26/25
carboxymethylcellulose sodium 1 % eye drops (Artificial Tears (carboxymethylcellulose)) 1 drp BOTH EYES BIDPRN PRN dry eye 02/26/25
cyanocobalamin (vitamin B-12) 1,000 mcg tablet 1,000 mcg PO DAILY Supplement ##0 02/26/25
duloxetine 20 mg capsule,delayed release 20 mg PO HS Depression 02/26/25
loratadine 10 mg tablet (Claritin) 10 mg PO DAILY Allergies 02/26/25
losartan 100 mg tablet 100 mg PO DAILY Blood Pressure 02/26/25
mometasone 1 mg intranasal DAILY 02/26/25
hydromorphone 4 mg tablet (Dilaudid) 4 mg PO Q6HPRN PRN SEVERE Pain 03/16/25
sulfamethoxazole 800 mg-trimethoprim 160 mg tablet (Bactrim DS) 1 tab PO BID Infection 03/16/25
therapeutic multivitamin 1 tab PO DAILY Supplement 03/16/25
Review of Systems
-
Constitutional: Reports No Symptoms
EENT: Reports No Symptoms
Respiratory: Reports No Symptoms
Cardiac: Reports No Symptoms
Abdomen/GI: Reports Abdominal Pain
: Reports No Symptoms
Musculoskeletal: Reports No Symptoms
Skin: Reports No Symptoms
Neurological: Reports No Symptoms
Endocrine: Reports No Symptoms
Hematologic/Lymphatic: Reports No Symptoms
Psych: Reports No Symptoms
Physical Exam
Vital Signs
Vital Signs
Temp Pulse Resp BP Pulse Ox
97.7 F 83 15 107/83 97
03/16/25 12:05 03/16/25 14:00 03/16/25 14:00 03/16/25 14:00 03/16/25 14:00
Physical Exam
General: Well Developed, Well Nourished and No Apparent Distress
HEENT: NormoCephalic, Moist mucous membranes and Atraumatic
Respiratory: Clear
Cardiac: S1/S2 and Regular Rhythm; No Murmur or Rub
GI: Soft, Non Tender, Non Distended, Normal Bowel Sounds and Ostomy; No Organomegaly
Rectal: Deferred by Provider
Musculoskeletal: No Clubbing, No Cyanosis and No Edema
Skin: No Rash
Neuro: AO x 3 and Nonfocal/grossly intact
Psych: Calm
Laboratory Results
-
03/16/25 10:40
03/16/25 10:40
Laboratory Results
Lactic Acid 2.0 mmol/L (0.7-2.0) 03/16/25 10:40
Total Bilirubin 0.5 mg/dl (0.2-1.3) 03/16/25 10:40
AST 29 U/L (14-36) 03/16/25 10:40
ALT 46 U/L (0-35) H 03/16/25 10:40
Alkaline Phosphatase 85 U/L (38-126) 03/16/25 10:40
Data Reviewed
-
Lab Data: Labs Reviewed by me
Impression/Plan
-
# Suspected ileostomy infection
- Underwent colostomy with stoma creation on 03/05
# History of diverticulitis
- CT abdomen pelvis pending
- IV Zosyn
- Surgery consulted
# Essential hypertension
- Continue Norvasc and losartan with hold parameters
# Depression
- Duloxetine continued
# Hypothyroidism
- Levothyroxine continue
# History of giant cell arteritis
- Actemra, leflunomide on hold as per surgery due to active infection
# DVT prophylaxis
- SCDs
# CODE STATUS
- Full code
--- NOTE | 2025-03-16 15:07 | CON.CRS ---
Consultation
-
Date/Time Consultation Requested: 03/16/2025, 14:53
Date/Time Consultation Performed: 03/16/2025, 15:00
Requesting Provider: Patricia Davis
Performing Provider: Rigoberto Link MD
Reason for Consultation: wound infection
Medical History
-
Chief Complaint: abdominal pain
History of Present Illness:
Patient now about a week and a half status post robotic colostomy takedown with proximal diverting loop ileostomy. She developed what seemed to be a postop wound infection which was managed by Vicki last Sunday. On discussion she admits to
occasional nausea but no emesis. No fevers or chills. She admits to some right abdominal wall discomfort and drainage. Denies any pelvic pain or pain elsewhere. Does admit to some paresthesia of the fingers and toes. Admits to occasional trans anal
mucus. She is on empiric Bactrim for now. Given her drainage noted in the office, she was advised to come to the ER for CT imaging and IV antibiotics.
Past Medical History
Past Medical History: Other (cellulitis, temporal arteritis, GERD, hypothyroidism, hyperparathyroidism, fibromyalgia, anxiety, OA, nephrolithiasis)
Past Surgical History: Other (Colostomy, parathyroidectomy, sigmoid resection due to diverticular abscess and colostomy)
Social History
Tobacco: Former Smoker
Alcohol: None
Drug: None
Family History
Family History: Reviewed & Not Pertinent
Allergies / Home Medications
Allergy/AdvReac Type Severity Reaction Status Date / Time
nut - unspecified Allergy Intermediate Swelling Verified 03/05/25 06:26
adhesive tape Allergy Itching, Verified 03/05/25 06:26
redness
azithromycin (From Zithromax) Allergy face Verified 03/05/25 06:26
swelling
oxycodone Allergy face Verified 03/05/25 06:26
swelling
shellfish derived Allergy Swelling Verified 03/05/25 13:15
shellfish Allergy Swelling Uncoded 03/05/25 06:26
�Medication �Instructions �Recorded �Confirmed �Type
aspirin 81 mg chewable tablet 81 mg PO HS Blood Clot 07/26/19 03/16/25 History
Prevention/Tx
levothyroxine 50 mcg tablet 50 mcg PO HS Thyroid 07/26/19 03/16/25 History
tocilizumab 200 mg/10 mL (20 162 mg SC Q4W 07/26/19 03/16/25 History
mg/mL) intravenous solution
(Actemra)
Compound Eye Drop 1 dose BOTH EYES DAILY 02/26/25 03/16/25 History
amlodipine 5 mg tablet 5 mg PO HS Blood Pressure 02/26/25 03/16/25 History
calcium carbonate 500 mg PO BID Supplement ##0 02/26/25 03/16/25 History
carboxymethylcellulose sodium 1 % 1 drp BOTH EYES BIDPRN PRN dry eye 02/26/25 03/16/25 History
eye drops (Artificial Tears
(carboxymethylcellulose))
cyanocobalamin (vitamin B-12) 1,000 mcg PO DAILY Supplement ##0 02/26/25 03/16/25 History
1,000 mcg tablet
duloxetine 20 mg capsule,delayed 20 mg PO HS Depression 02/26/25 03/16/25 History
release
loratadine 10 mg tablet (Claritin) 10 mg PO DAILY Allergies 02/26/25 03/16/25 History
losartan 100 mg tablet 100 mg PO DAILY Blood Pressure 02/26/25 03/16/25 History
mometasone 1 mg intranasal DAILY 02/26/25 03/16/25 History
hydromorphone 4 mg tablet 4 mg PO Q6HPRN PRN SEVERE Pain 03/16/25 03/16/25 History
(Dilaudid)
sulfamethoxazole 800 1 tab PO BID Infection 03/16/25 03/16/25 History
mg-trimethoprim 160 mg tablet
(Bactrim DS)
therapeutic multivitamin 1 tab PO DAILY Supplement 03/16/25 03/16/25 History
Review of Systems
-
History Source: Patient
Abdomen/GI: Abdominal Pain (RUQ pain near ileostomy site, Pus evacuated near ileostomy when pressed in distal part of abdomen)
A 10 point review of systems was completed, and was negative except as per HPI.
Physical Exam
Vital Signs
Temp 97.7 F 03/16/25 12:05
Pulse 83 03/16/25 14:00
Resp Rate 15 03/16/25 14:00
Blood pressure 107/83 03/16/25 14:00
SaO2 97 03/16/25 14:00
03/15/25 03/16/25 03/17/25
05:59 06:59 06:59
Actual Weight 57.9 kg
Body Mass Index (BMI) 22.6
Lab Results / Allergies
03/16/25 10:40
03/16/25 10:40
WBC 7.1 10^3/uL (4.8-10.8) 03/16/25 10:40
Hgb 12.9 g/dL (12.0-16.0) 03/16/25 10:40
Hct 39.1 % (37.0-47.0) 03/16/25 10:40
Plt Count 256 10^3/uL (130-400) 03/16/25 10:40
Abs Immat Gran (auto) 0.0 10^3/uL (0-0.05) 03/16/25 10:40
Neutrophils % 63.4 % (42.2-75.2) 03/16/25 10:40
Allergy/AdvReac Type Severity Reaction Status Date / Time
nut - unspecified Allergy Intermediate Swelling Verified 03/05/25 06:26
adhesive tape Allergy Itching, Verified 03/05/25 06:26
redness
azithromycin (From Zithromax) Allergy face Verified 03/05/25 06:26
swelling
oxycodone Allergy face Verified 03/05/25 06:26
swelling
shellfish derived Allergy Swelling Verified 03/05/25 13:15
shellfish Allergy Swelling Uncoded 03/05/25 06:26
Physical Exam
General: Well Developed, Well Nourished and No Apparent Distress
GI: Soft, Tender (RUQ pain near ileostomy, pus released at mucocutaneous seperation) and Other (ileostomy warm and pink with function, other robotic incisions c/d/i, RLQ that was incised is now mostly closed)
Neuro: AO x 3
Psych: Calm
Data Reviewed
-
Labs: Labs Reviewed by me, Discussed with Physician and Discussed with Patient
Old Records: Reviewed
Assessment / Plan
-
Assessment: 69yo female with recent colostomy reversal with ileostomy creation (03/05/2025), presents from clinic due to an abscess near her ileostomy site
Plan:
-Labs reviewed - WBC normal
-CT po/iv/rectal pending
-Admit for IV antibiotics
-Further plans to follow
--- NOTE | 2025-03-16 16:05 | CM ---
Chart reviewed and spoke with Samra at bedside
Lives in a 2SH with , son and his family no RAISSA
PLOF independent with ADLs and ambulating
DME ostomy from [facility]
PCP Dr. Aleksandr Trinh
RX plan yes
Pharmacy [facility] in [place]
hx of [facility] ; per Thi she is current with [facility]
hx of SNF no
DCP is to go home with services as needed. Family can provide transportation
CM will continue to follow up for any dcp needs
[2025-03-16] MEDS: DILAUDID 4 MG PO (18:29)
[2025-03-16] MEDS: OSCAL CAL 500 500 MG PO (21:21)
[2025-03-16] MEDS: LOW STRENGTH ASPIRIN 81 MG PO (21:23)
[2025-03-16] MEDS: ZOSYN 50 IV (21:23)
[2025-03-16] MEDS: SYNTHROID 50 MCG PO (21:23)
[2025-03-16] MEDS: CYMBALTA DELAYED RELEASE 20 MG PO (21:23)
[2025-03-16] MEDS: NORVASC 5 MG PO (21:33)
[2025-03-17] VITALS (13 sets, daily range): BP systolic 64–142; BP diastolic 52–76
[2025-03-17] MEDS: ZOSYN 50 IV ×4 (04:17→23:01)
[2025-03-17] MEDS: DILAUDID 4 MG PO (04:31)
[2025-03-17 06:55] LABS: Hematocrit 39.0 % (37.0-47.0); Hemoglobin 12.8 g/dL (12.0-16.0); Mean Corp Hgb Conc. 32.8 g/dL (33.0-37.0); Mean Corpuscular Volume 95.6 fL (81.0-99.0); Platelet Count 250 10^3/uL (130-400); Red Cell Dist. Width 12.3 % (11.5-14.5)
[2025-03-17 06:58] LABS: Blood Urea Nitrogen 20 mg/dl (7-17); Calcium 10.1 mg/dl (8.4-10.2); Carbon Dioxide 27 mmol/L (22-30); Chloride 102 mmol/L (98-107); Estimated Creatinine Clearance 40 ml/min; Glucose 88 mg/dl (70-99); Potassium 3.9 mmol/L (3.5-5.1); Sodium 135 mmol/L (135-145); eGFR 54.39
--- NOTE | 2025-03-17 08:11 | VNURNOTE ---
Addendum entered by Samra Mendosa RN 03/17/25 09:18:
[facility] Resumption referral placed in [facility].
Original Note:
Chart reviewed. Patient is current with [facility]. Will continue to follow hospital course and DC plans.
--- NOTE | 2025-03-17 09:08 | W.PN.CRS1 ---
Today's Communication / Plan
-
IR drain
NPO until IR then regular diet
wound consult
lovenox
IV abx
Assessment/Plan
-
Assessment: 69yo female with recent colostomy reversal with ileostomy creation (03/05/2025), presents from clinic due to an abscess near her ileostomy site
WBC: 10.8, Hgb 9.3 (9.5), Creatinine 1.1 (0.9)
Plan:
-Trend labs- WBC normal. Creatinine 1.1, trend. Likely due to dehydration.
-CT po/iv/rectal reviewed yesterday - 5.3 cm RIGHT ANTERIOR ABDOMINAL WALL ABSCESS (or seroma) located medial and inferior to a right anterior abdominal wall ileostomy and 2.8 cm left anterior abdominal wall abscess (or seroma).
-Maintain IV antibiotics
-IR has been consulted for anterior wall abscess drain
-NPO until IR, then regular diet
-Will start lovenox for dvt prophylaxis
-bilingual customer service specialist for ileostomy care
Subjective Data
Subjective Data
Date of Service: March 17, 2025
Patient states she feels the same. Still notices some hardness around her ileostomy and RLQ incision. Has bowel function.
Objective Data
-
Vital Signs
Temp Pulse Resp BP Pulse Ox
97.4 F 65 14 121/63 98
03/17/25 08:25 03/17/25 08:25 03/17/25 08:25 03/17/25 08:25 03/17/25 08:25
Lab Results
03/17/25 05:35
03/17/25 05:35
Physical Exam
-
General: No Acute Distress and AOx3
Abdomen: Soft, Non Distended, Tender (RLQ tenderness around incision and above the incision, tenderness around the ileostomy) and Other (ileostomy warm with bowel function)
Skin: Warm and Dry
[2025-03-17] MEDS: CLARITIN PO (10:11)
[2025-03-17] MEDS: VITAMIN B-12 PO (10:12)
[2025-03-17] MEDS: OSCAL CAL 500 PO (10:12)
[2025-03-17] MEDS: THERAGRAN PO (10:12)
[2025-03-17] MEDS: NSS 1000 IV (10:13)
--- NOTE | 2025-03-17 12:06 | W.PN.HOSP.TC ---
Today's Communication/Plan
-
Monitor vital signs see plan
Continue with Zosyn
IR for abscess drain
Gentle hydration
Hold losartan
Monitor renal function
Assessment / Plan
Assessment / Plan
General: Well Developed, Well Nourished and No Apparent Distress
HEENT: NormoCephalic, Moist mucous membranes and Atraumatic
Respiratory: Clear
Cardiac: S1/S2 and Regular Rhythm; No Murmur or Rub
GI: Soft, Non Tender, Non Distended, Normal Bowel Sounds and Ostomy
Neuro: AO x 3 and Nonfocal/grossly intact
Psych: Calm
Suspected ileostomy infection
- Underwent colostomy with stoma creation on 03/05
# History of diverticulitis
- CT abdomen pelvis on admission with right anterior abdominal wall abscess or seroma located medial and inferior to a right anterior abdominal wall ileostomy and 2.8 cm left anterior abdominal wall abscess (or seroma)
Colorectal surgery following
IR consulted. Post IR drain consider ID for evaluation
- IV Zosyn
MAYE
Start gentle hydration
Monitor
Hold losartan
# Essential hypertension
- Continue Norvasc and losartan with hold parameters
# Depression
- Duloxetine continued
# Hypothyroidism
- Levothyroxine continue
# History of giant cell arteritis
- Actemra, leflunomide on hold as per surgery due to active infection
# DVT prophylaxis
- SCDs
# CODE STATUS
- Full code
I spent a total of 52 minutes with the patient or on the floor. More than 50% of this time involved counseling and coordination of care.
Anticipated Discharge: > 48 hours
Subjective/Interval History
-
Date of Service: March 17, 2025
Does have some pain
Objective Data
-
Labs:
Laboratory Results
03/17/25
05:35
WBC 6.2
Hgb 12.8
Hct 39.0
Plt Count 250
Sodium 135
Potassium 3.9
Chloride 102
Carbon Dioxide 27
BUN 20 H
Creatinine 1.1 H
Glucose 88
Calcium 10.1
Vital Signs:
Vital Signs
Temp Pulse Resp BP Pulse Ox
97.4 F 65 14 121/63 98
03/17/25 08:25 03/17/25 08:25 03/17/25 08:25 03/17/25 08:25 03/17/25 08:25
--- NOTE | 2025-03-17 12:15 | WOUNDNOTE ---
ANY RN NOTE: Patient known to service, followed patient for ostomy care post ileostomy creation 02/2025. Now patient admitted with abscess to 3 O clock side of peristomal skin. Current appliance intact no leakage. Stoma pink, + stool output. White
drainage visible from abscess site lateral to stoma. Scheduled for IR to drain abscess later today. Recommended to patient to hold off on appliance change until after drain in place. Will follow post drain either later today or tomorrow. Recommended
to nurse Gilliam to send patient to IR with wafer and pouch incase it needs to be changed during procedure. Supplies ordered from [facility] and placed at bedside. Will follow.
[2025-03-17] MEDS: LOVENOX 40 MG SC (17:04)
[2025-03-17] MEDS: OSCAL CAL 500 500 MG PO (22:57)
[2025-03-17] MEDS: SYNTHROID 50 MCG PO (23:05)
[2025-03-17] MEDS: CYMBALTA DELAYED RELEASE 20 MG PO (23:05)
[2025-03-17] MEDS: LOW STRENGTH ASPIRIN 81 MG PO (23:06)
[2025-03-17] MEDS: NORVASC 5 MG PO (23:06)
[2025-03-17] MEDS: DILAUDID 2 MG PO (23:46)
[2025-03-18 02:56] VITALS: BP 101/52
[2025-03-18] MEDS: DILAUDID 4 MG PO ×2 (04:26→22:51)
[2025-03-18] MEDS: NSS 1000 IV ×2 (04:27→15:06)
[2025-03-18] MEDS: ZOSYN 50 IV ×2 (04:27→10:20)
[2025-03-18 06:23] LABS: Hematocrit 36.7 % (37.0-47.0); Hemoglobin 12.1 g/dL (12.0-16.0); Mean Corp Hgb Conc. 33.0 g/dL (33.0-37.0); Mean Corpuscular Volume 94.6 fL (81.0-99.0); Nucleated Red Blood Cells % 0 %; Platelet Count 258 10^3/uL (130-400); Red Cell Dist. Width 12.3 % (11.5-14.5)
[2025-03-18 06:34] LABS: ALT (SGPT) 34 U/L (0-35); AST (SGOT) 25 U/L (14-36); Albumin 3.8 g/dl (3.5-5.0); Alkaline Phosphatase 74 U/L (38-126); Blood Urea Nitrogen 19 mg/dl (7-17); Calcium 9.4 mg/dl (8.4-10.2); Carbon Dioxide 26 mmol/L (22-30); Chloride 106 mmol/L (98-107); Estimated Creatinine Clearance 49 ml/min; Glucose 96 mg/dl (70-99); Potassium 4.4 mmol/L (3.5-5.1); Sodium 138 mmol/L (135-145); Total Protein 6.2 g/dl (6.3-8.2); eGFR > 60.00
[2025-03-18 07:43] VITALS: BP 97/64
[2025-03-18] MEDS: VITAMIN B-12 1000 MCG PO (08:46)
[2025-03-18] MEDS: THERAGRAN 1 TABLET PO (08:46)
[2025-03-18] MEDS: OSCAL CAL 500 500 MG PO ×2 (08:46→20:04)
[2025-03-18] MEDS: CLARITIN 10 MG PO (08:46)
--- NOTE | 2025-03-18 09:22 | W.PN.CRS1 ---
Today's Communication / Plan
-
Continue antibiotics
Maintain IR drain
Dispo per primary team.
Assessment/Plan
-
Assessment: 69yo female with recent colostomy reversal with ileostomy creation (03/05/2025), presents from clinic due to an abscess near her ileostomy site
WBC: 5.5 (10.8), Hgb 12.1 (9.3, 9.5), Creatinine 0.9 (1.1, 0.9)
Plan:
-Creatinine has improved back to baseline
-IR drain in place, flushes per IR
-Maintain IV antibiotics, recommend convert to p.o. upon discharge
-No plans for surgery during this admission
-Lovenox for dvt prophylaxis
-diazo technician for ileostomy care
- Dispo per primary team, follow-up in the office in [address] Link
Subjective Data
Subjective Data
Date of Service: March 18, 2025
Patient states she feels overall well today. She has noticed an increase amount of her ileostomy putting out stool. She has some pain but it is controlled. Her abdomen is less hard since the drains were inserted. She had nausea briefly earlier
today but now feels better. She states she usually has nausea here or there. She is not that hungry.
Objective Data
-
Vital Signs
Temp Pulse Resp BP Pulse Ox
98.5 F 75 18 97/64 98
03/18/25 07:43 03/18/25 07:43 03/18/25 07:43 03/18/25 07:43 03/18/25 07:43
Intake & Output
03/17/25 03/18/25 03/19/25
06:59 06:59 06:59
Intake Total 800 / 800
Output Total 15 / 15
Balance 785 / 785
Intake:
Oral fluids 390 / 390
IV fluids (Total) 300 / 300
IV piggybacks 100 / 100
Amount instilled into Drain (
Total)
Left Abdomen Placed in IR
Output:
Drain Output (Total)
Left Abdomen Placed in IR
Other:
Number of approximated MODERATE 3
amounts of urine
Lab Results
03/18/25 05:48
03/18/25 05:48
Physical Exam
-
General: No Acute Distress and AOx3
Abdomen: Soft, Non Distended, Tender (Mild around drain site) and Other (IR drain serosanguineous)
Skin: Warm and Dry
Wound: Dressing in Place
[2025-03-18] MEDS: NON-FORMULARY ITEM 1 DOSE BOTH EYES (10:47)
--- NOTE | 2025-03-18 13:19 | W.PN.HOSP.TC ---
Today's Communication/Plan
-
Monitor vital signs and see plan
ID evaluation
Continue with antibiotics
Monitor drain
Gentle hydration
Assessment / Plan
Assessment / Plan
General: Well Developed, Well Nourished and No Apparent Distress
HEENT: NormoCephalic, Moist mucous membranes and Atraumatic
Respiratory: Clear
Cardiac: S1/S2 and Regular Rhythm; No Murmur or Rub
GI: Soft, Non Tender, Non Distended, Normal Bowel Sounds and Ostomy,+ drain
Neuro: AO x 3 and Nonfocal/grossly intact
Psych: Calm
Suspected ileostomy infection
- Underwent colostomy with stoma creation on 03/05
# History of diverticulitis
- CT abdomen pelvis on admission with right anterior abdominal wall abscess or seroma located medial and inferior to a right anterior abdominal wall ileostomy and 2.8 cm left anterior abdominal wall abscess (or seroma)
Colorectal surgery following
Status post IR drain, follow cultures. ID evaluation
- IV Zosyn
MAYE
cw gentle hydration
Monitor
Hold losartan
# Essential hypertension
- Continue Norvasc
# Depression
- Duloxetine continued
# Hypothyroidism
- Levothyroxine continue
# History of giant cell arteritis
- Actemra, leflunomide on hold as per surgery due to active infection
# DVT prophylaxis
- SCDs
# CODE STATUS
- Full code
I spent a total of 51 minutes with the patient or on the floor. More than 50% of this time involved counseling and coordination of care.
Anticipated Discharge: 24 - 48 hours
Subjective/Interval History
-
Date of Service: March 18, 2025
Denies nausea
Objective Data
-
Labs:
Laboratory Results
03/18/25
05:48
WBC 5.5
Hgb 12.1
Hct 36.7 L
Plt Count 258
Sodium 138
Potassium 4.4
Chloride 106
Carbon Dioxide 26
BUN 19 H
Creatinine 0.9
Glucose 96
Calcium 9.4
Total Bilirubin 0.6
AST 25
ALT 34
Alkaline Phosphatase 74
Vital Signs:
Vital Signs
Temp Pulse Resp BP Pulse Ox
98.5 F 75 18 97/64 98
03/18/25 07:43 03/18/25 07:43 03/18/25 07:43 03/18/25 07:43 03/18/25 07:43
I&O
03/17/25 03/18/25 03/19/25
06:59 06:59 06:59
Intake Total 800 / 800
Output Total
Balance 785 / 785
--- NOTE | 2025-03-18 14:55 | CON.ID ---
Consultation
-
Date/Time Consultation Requested: 03/18/2025 0851
Date/Time Consultation Performed: 03/18/2025 1450
Requesting Provider: Dr. Gillis
Performing Provider: Dr. Jeffrey
Reason for Consultation: Abdominal wall abscess
Chief Complaint / Past History
History of Present Illness
Samra Balderas is a 69-year-old female with a significant past medical history of diverticulitis, prior colostomy with recent reversal being evaluated at the request of Dr. Gillis regarding abdominal abscess. History is obtained from chart
review, along with patient interview.
The patient has a significant past medical history of developing giant cell arteritis approximately 5 years ago. At that time, she reports that she was on significant doses of steroids which possibly led to a perforation of the bowel requiring
colostomy placement. Thereafter, she developed pyoderma gangrenosum and was placed on a biologic. Over time, her GSA and pyoderma gangrenosum became under control and she was taken off the biologic in August 2024. She was in touch with CRS and
underwent colostomy reversal on 03/05/2025.
Approximately 1 week after surgery the patient developed some induration around her ileostomy site with increasing abdominal pain and drainage from the ileostomy and an adjacent drainage tract approximately 1 week ago. She was evaluated by CRS in
the office this past Sunday and underwent an I&D of the drainage tract in the office. She was started on oral antibiotics (Bactrim). She was followed in the office 2 days ago and because of ongoing symptomatology she was admitted to the hospital.
Yesterday she underwent IR drainage of an abdominal wall collection, with recovery of 18 cc of fluid. Infectious Diseases assessed, and upon further antimicrobial therapy.
At this time she reports feeling okay. She still notes some swelling at the ileostomy site. She denies any fevers or chills.
Past History
Additional Past Medical History:
Fibromyalgia
HTN
Giant cell arteritis
Glaucoma
Diverticulitis
Pyoderma gangrenosum
Additional Past Surgical History:
Parathyroidectomy
Colostomy
Allergy History:
nut - unspecified Allergy (Intermediate, Verified 03/05/25 06:26)
Swelling
adhesive tape Allergy (Verified 03/05/25 06:26)
Itching, redness
azithromycin (From Zithromax) Allergy (Verified 03/05/25 06:26)
face swelling
oxycodone Allergy (Verified 03/05/25 06:26)
face swelling
shellfish derived Allergy (Verified 03/05/25 13:15)
Swelling
shellfish Allergy (Uncoded 03/05/25 06:26)
Swelling
Medications Reviewed: Yes
Current Antibiotics:
Zosyn 3.375 gm IV q.6 hours
Social History
Tobacco: Former Smoker
Alcohol: None
Drug: None
Personal:
Living: With Family
Employment: Not Employed
Family History
Family History: Not Pertinent
Review of Systems
Vital Signs
Temp Pulse Resp BP Pulse Ox
98.5 F 75 18 97/64 98
03/18/25 07:43 03/18/25 07:43 03/18/25 07:43 03/18/25 07:43 03/18/25 07:43
Physical Exam
Physical Exam
Constitutional: No Acute Distress, Comfortable and Non-toxic
Eyes: No Conjunctival Hemorrhage and Sclera Anicteric
Oral: No Thrush and No Ulcers
Cardiovascular: Regular Rate and S1/S2; Negative S3/S4
Pulmonary: Clear; Negative Wheezes, Rales or Rhonchi
Gastrointestinal: Soft, Tender, Non Distended, Normal Bowel Sounds and Other (Ileostomy in place with some peristomal swelling and induration. A TROY is in place with serosanguineous fluid.)
Genito-Urinary: Negative Zhong
Skin: Warm and Dry; Negative Rash
Neurological: Awake and Alert
Psychological: Calm
Lab / Diagnostic Study Results
03/18/25 05:48
03/18/25 05:48
Abs Immat Gran (auto) 0.0 10^3/uL (0-0.05) 03/18/25 05:48
Absolute Neuts (auto) 2.5 10^3/uL (1.4-6.5) 03/18/25 05:48
Absolute Lymphs (auto) 2.0 10^3/uL (1.2-3.4) 03/18/25 05:48
Absolute Monos (auto) 0.7 10^3/uL (0.1-0.6) H 03/18/25 05:48
Absolute Basos (auto) 0.1 10^3/uL (0-0.2) 03/18/25 05:48
Immature Gran % 0.4 % (0-0.5) 03/18/25 05:48
Neutrophils % 45.1 % (42.2-75.2) 03/18/25 05:48
Lymphocytes % 35.5 % (20.5-51.1) 03/18/25 05:48
Monocytes % 12.3 % (1.7-9.3) H 03/18/25 05:48
Eosinophils % 5.3 % (0-6) 03/18/25 05:48
Basophils % 1.4 % (0-2) 03/18/25 05:48
Lactic Acid 2.0 mmol/L (0.7-2.0) 03/16/25 10:40
Microbiology Results
Micro:
03/17/25 15:45 Wound Culture - Preliminary
Abdomen No growth
Gram Stain - Preliminary
03/17/25 15:45 Wound Culture - Preliminary
Abdomen Viridans Streptococcus Group
Gram Stain - Preliminary
Imaging:
03/16/2025 CT abdomen/pelvis with contrast: there is a 5.3 cm right anterior abdominal wall abscess (versus seroma) located medial and inferior to the right anterior abdominal wall ileostomy. There is also a 2.8 cm left anterior abdominal wall
abscess (or seroma). There is a moderate to large amount of soft tissue emphysema throughout the anterior abdominal wall. Mild diffuse wall thickening and some mucosal edema throughout the colon. Please see full dictation for additional detail.
Film personally viewed.
Assessment / Plan
Abdominal wall abscess
- Cultures with viridans strep
Fibromyalgia
HTN
Giant cell arteritis
Glaucoma
Diverticulitis
Pyoderma gangrenosum
Recommendations:
At present, only. And strep has been recovered.
Discontinue further Zosyn and de-escalate to Unasyn.
Monitor for clinical improvement.
Await final culture data.
Continue supportive measures.
--- NOTE | 2025-03-18 15:14 | WOUNDNOTE ---
[facility] RN note: Patient ambulating independently. Stoma pink and budded and functioning for large amount of liquid brown effluent. Peristomal skin with some MASD from some stool leakage laterally. Peristomal skin slightly indurated adjacent around
stoma. There is a shallow peristomal mucocutaneous medially. Ileostomy appliance changed using Radha wafer # [id number], Roseanna seal and Radha pouch # [id number]. Ostomy supplies at bedside. She has flat and soft convex appliances. Patient has samples
of high output pouch at home. She is current with [facility]. Will follow as needed. Patient for possible discharge tomorrow.
[2025-03-18 15:25] VITALS: BP 116/62
[2025-03-18] MEDS: UNASYN IV ×2 (17:16→21:15)
[2025-03-18] MEDS: LOVENOX 40 MG SC (17:19)
[2025-03-18] MEDS: SYNTHROID 50 MCG PO (21:13)
[2025-03-18] MEDS: CYMBALTA DELAYED RELEASE 20 MG PO (21:14)
[2025-03-18] MEDS: NORVASC 5 MG PO (21:14)
[2025-03-18] MEDS: LOW STRENGTH ASPIRIN 81 MG PO (21:14)
[2025-03-18 23:00] VITALS: BP 109/58
[2025-03-19] MEDS: UNASYN IV ×4 (03:47→21:38)
[2025-03-19] MEDS: DILAUDID 2 MG PO (04:13)
[2025-03-19 07:24] VITALS: BP 121/66
[2025-03-19 07:30] LABS: Hematocrit 34.3 % (37.0-47.0); Hemoglobin 11.4 g/dL (12.0-16.0); Mean Corp Hgb Conc. 33.2 g/dL (33.0-37.0); Mean Corpuscular Volume 93.2 fL (81.0-99.0); Nucleated Red Blood Cells % 0 %; Platelet Count 256 10^3/uL (130-400); Red Cell Dist. Width 12.3 % (11.5-14.5)
[2025-03-19 07:57] LABS: ALT (SGPT) 27 U/L (0-35); AST (SGOT) 21 U/L (14-36); Albumin 3.3 g/dl (3.5-5.0); Alkaline Phosphatase 71 U/L (38-126); Blood Urea Nitrogen 11 mg/dl (7-17); Calcium 9.0 mg/dl (8.4-10.2); Carbon Dioxide 25 mmol/L (22-30); Chloride 112 mmol/L (98-107); Estimated Creatinine Clearance 63 ml/min; Glucose 86 mg/dl (70-99); Potassium 3.9 mmol/L (3.5-5.1); Sodium 140 mmol/L (135-145); Total Protein 5.8 g/dl (6.3-8.2); eGFR > 60.00
[2025-03-19] MEDS: OSCAL CAL 500 500 MG PO ×2 (08:25→19:36)
[2025-03-19] MEDS: THERAGRAN 1 TABLET PO (08:26)
[2025-03-19] MEDS: NON-FORMULARY ITEM 1 DOSE BOTH EYES (08:26)
[2025-03-19] MEDS: CLARITIN 10 MG PO (08:26)
[2025-03-19] MEDS: VITAMIN B-12 1000 MCG PO (08:26)
[2025-03-19] MEDS: NSS 1000 IV ×2 (08:26→17:35)
[2025-03-19] MEDS: IMODIUM 2 MG PO (09:12)
--- NOTE | 2025-03-19 09:12 | W.PN.CRS1 ---
Today's Communication / Plan
-
immodium BID
watch ileostomy output
continue abx per ID
Assessment/Plan
-
Assessment: 69yo female with recent colostomy reversal with ileostomy creation (03/05/2025), presents from clinic due to an abscess near her ileostomy site
WBC: 4.3 (5.5, 10.8), Hgb 11.4 (12.1, 9.3, 9.5), Creatinine 0.7
Ileostomy output 1175ml
Plan:
-Watch ileostomy output - ideally would like less than 1 L a day. Immodium BID started. Recommend keeping another day to monitor output.
-IR drain in place, flushes per IR
-Maintain IV antibiotics per ID, currently on unasyn
-No plans for surgery during this admission
-Lovenox for dvt prophylaxis
-android architect for ileostomy care
- Dispo: follow-up in the office in [address] Link
Subjective Data
Subjective Data
Date of Service: March 19, 2025
Patient states she has a little bit of pain around the drain. She has occasional nausea. Denies vomiting. Tolerating a diet. Her ileostomy put out 1175ml in the last 24 hours.
Objective Data
-
Vital Signs
Temp Pulse Resp BP Pulse Ox
97.8 F 70 18 121/66 96
03/19/25 07:24 03/19/25 07:24 03/19/25 07:24 03/19/25 07:24 03/19/25 07:24
Intake & Output
03/18/25 03/19/25 03/20/25
06:59 06:59 06:59
Intake Total 800 / 800 1965 / 1965
Output Total 15 / 15 1175 / 1175
Balance 785 / 785 790 / 790
Intake:
Oral fluids 390 / 390 1140 / 1140
IV fluids (Total) 300 / 300 580 / 580
IV piggybacks 100 / 100 240 / 240
Amount instilled into Drain (
Total)
Left Abdomen Placed in IR
Output:
Liquid stool amount 1175 / 1175
Ileostomy 1175 / 1175
Drain Output (Total)
Left Abdomen Placed in IR
Other:
How many times incontinent 1
MODERATE amount urine
Number of approximated MODERATE 3 1
amounts of urine
Lab Results
03/19/25 07:04
03/19/25 07:04
Physical Exam
-
General: No Acute Distress and AOx3
Abdomen: Soft, Non Distended, Tender (mild around drain sites) and Other (IR drain serosanginous )
Skin: Warm and Dry
Wound: Dressing in Place
Incision: Clear, Dry, Intact
--- NOTE | 2025-03-19 11:47 | W.PN.HOSP.TC ---
Today's Communication/Plan
-
Monitor vital signs and see plan
Continue antibiotics per infectious disease
Follow cultures
Monitor ostomy output
Assessment / Plan
Assessment / Plan
General: Well Developed, Well Nourished and No Apparent Distress
HEENT: NormoCephalic, Moist mucous membranes and Atraumatic
Respiratory: Clear
Cardiac: S1/S2 and Regular Rhythm; No Murmur or Rub
GI: Soft, Non Tender, Non Distended, Normal Bowel Sounds and Ostomy,+ drain
Neuro: AO x 3 and Nonfocal/grossly intact
Psych: Calm
Suspected ileostomy infection
- Underwent colostomy with stoma creation on 03/05
# History of diverticulitis
- CT abdomen pelvis on admission with right anterior abdominal wall abscess or seroma located medial and inferior to a right anterior abdominal wall ileostomy and 2.8 cm left anterior abdominal wall abscess (or seroma)
Colorectal surgery following
Status post IR drain, follow cultures. ID evaluation
Now on Unasyn, follow-up culture from abscess. Growing viridans strep, gram-negative bacilli
MAYE
cw gentle hydration
Monitor, MAYE resolved however given low blood pressure will continue to hold losartan
Hold losartan
# Essential hypertension
- Continue Norvasc with holding parameter
# Depression
- Duloxetine continued
# Hypothyroidism
- Levothyroxine continue
# History of giant cell arteritis
- Actemra, leflunomide on hold as per surgery due to active infection
History of polymyalgia rheumatica
# DVT prophylaxis
- Lovenox
# CODE STATUS
- Full code
Anticipated Discharge: Within 24 hours
Subjective/Interval History
-
Date of Service: March 19, 2025
Increase in ostomy output today
Objective Data
-
Labs:
Laboratory Results
03/19/25
07:04
WBC 4.3 L
Hgb 11.4 L
Hct 34.3 L
Plt Count 256
Sodium 140
Potassium 3.9
Chloride 112 H
Carbon Dioxide 25
BUN 11
Creatinine 0.7
Glucose 86
Calcium 9.0
Total Bilirubin 0.3
AST 21
ALT 27
Alkaline Phosphatase 71
Vital Signs:
Vital Signs
Temp Pulse Resp BP Pulse Ox
97.8 F 70 18 121/66 96
03/19/25 07:24 03/19/25 07:24 03/19/25 07:24 03/19/25 07:24 03/19/25 07:24
I&O
03/18/25 03/19/25 03/20/25
06:59 06:59 06:59
Intake Total 800 / 800 1965 / 1965
Output Total 1175 / 1175
Balance 785 / 785 790 / 790 -
--- NOTE | 2025-03-19 12:55 | CM ---
CM following re: discharge planning.
Reviewed pt's chart, met with pt and pt's at bedside.
Per MD, program manager environmental planning for ileostomy care recommended.
Pt is current with [facility]. [facility] liaison following.
D/C plan: home with [facility] and family support. to transport at discharge.
CM will follow with discharge plan updates as needed.
--- NOTE | 2025-03-19 14:20 | W.PN.ID1 ---
Date of Service
Date of Service: March 19, 2025
Today's Communication
Continue antibiotics. See below�
Assessment / Plan
Abdominal wall abscess
- Cultures with viridans strep as of yesterday, but now additional GNR recovered.
Fibromyalgia
HTN
Giant cell arteritis
Glaucoma
Diverticulitis
Pyoderma gangrenosum
Recommendations:
Viridans strep and additional GNR recovered from wound
Continue with Unasyn for today.
Await further culture and susceptibility data to guide further antimicrobial selection.
Monitor for clinical improvement.
May require an additional 24 to 48 hours of IV antibiotics (or more) based upon clinical improvement.
- Not clear at present if patient will require IV antibiotics upon discharge.
Continue supportive measures.
Chief Complaint
-: Other (Abdominal wall abscess)
Subjective / Review of Systems
Patient seen and examined. Reports feeling somewhat improved today. Notes minimal abdominal discomfort, although some ongoing tenderness in the anterior abdomen area.
Review of Systems: No Fever and No Chills
Vital Signs / Physical Exam
Vital Signs
Vital Signs
Temp Pulse Resp BP Pulse Ox
97.8 F 70 18 121/66 96
03/19/25 07:24 03/19/25 07:24 03/19/25 07:24 03/19/25 07:24 03/19/25 07:24
Physical Exam
Constitutional: No Acute Distress, Comfortable and Non-toxic
Eyes: Sclera Anicteric
Cardiovascular: S1/S2; Negative S3/S4
Pulmonary: Non Labored
Gastrointestinal: Soft, Tender (Peristomal area, with some ongoing induration.), Normal Bowel Sounds and Other (Ileostomy in place. TRYO in place with serosanguineous fluid)
Genito-Urinary: Negative Zhong
Extremities: Negative Edema, Clubbing or Cyanosis
Skin: Warm and Dry
Neurological: Awake and Alert
Objective Data
Lab Data
Lab Results
03/19/25 07:04
03/19/25 07:04
Estimated Creat Clear 63 ml/min 03/19/25 07:04
Lactic Acid 2.0 mmol/L (0.7-2.0) 03/16/25 10:40
Total Bilirubin 0.3 mg/dl (0.2-1.3) 03/19/25 07:04
AST 21 U/L (14-36) 03/19/25 07:04
ALT 27 U/L (0-35) 03/19/25 07:04
Alkaline Phosphatase 71 U/L (38-126) 03/19/25 07:04
Most recent labs reviewed.
Micro Results:
03/17/25 15:45 Wound Culture - Preliminary
Abdomen Gram Stain - Preliminary
03/17/25 15:45 Wound Culture - Preliminary
Abdomen Gram negative bacilli
Viridans Streptococcus Group
Gram Stain - Preliminary
Imaging:
03/16/2025 CT abdomen/pelvis with contrast: there is a 5.3 cm right anterior abdominal wall abscess (versus seroma) located medial and inferior to the right anterior abdominal wall ileostomy. There is also a 2.8 cm left anterior abdominal wall
abscess (or seroma). There is a moderate to large amount of soft tissue emphysema throughout the anterior abdominal wall. Mild diffuse wall thickening and some mucosal edema throughout the colon. Please see full dictation for additional detail.
Film personally viewed.
[2025-03-19 15:42] VITALS: BP 130/71
[2025-03-19] MEDS: LOVENOX 40 MG SC (17:35)
[2025-03-19] MEDS: IMODIUM PO (19:36)
[2025-03-19] MEDS: CYMBALTA DELAYED RELEASE 20 MG PO (21:38)
[2025-03-19] MEDS: LOW STRENGTH ASPIRIN 81 MG PO (21:38)
[2025-03-19] MEDS: SYNTHROID 50 MCG PO (21:38)
[2025-03-19] MEDS: NORVASC 5 MG PO (21:46)
[2025-03-20] MEDS: DILAUDID 4 MG PO (02:46)
[2025-03-20] MEDS: UNASYN IV ×4 (03:58→21:25)
[2025-03-20 06:22] LABS: Hematocrit 34.1 % (37.0-47.0); Hemoglobin 11.3 g/dL (12.0-16.0); Mean Corp Hgb Conc. 33.1 g/dL (33.0-37.0); Mean Corpuscular Volume 95.3 fL (81.0-99.0); Platelet Count 262 10^3/uL (130-400); Red Cell Dist. Width 12.2 % (11.5-14.5)
[2025-03-20 06:47] LABS: ALT (SGPT) 26 U/L (0-35); AST (SGOT) 24 U/L (14-36); Albumin 3.5 g/dl (3.5-5.0); Alkaline Phosphatase 70 U/L (38-126); Blood Urea Nitrogen 11 mg/dl (7-17); Calcium 8.9 mg/dl (8.4-10.2); Carbon Dioxide 26 mmol/L (22-30); Chloride 112 mmol/L (98-107); Estimated Creatinine Clearance 73 ml/min; Glucose 84 mg/dl (70-99); Potassium 3.9 mmol/L (3.5-5.1); Sodium 142 mmol/L (135-145); Total Protein 5.9 g/dl (6.3-8.2); eGFR > 60.00
[2025-03-20 07:24] LABS: Nucleated Red Blood Cells % 0 %
[2025-03-20 08:38] VITALS: BP 128/68
[2025-03-20] MEDS: IMODIUM 2 MG PO (08:49)
[2025-03-20] MEDS: OSCAL CAL 500 500 MG PO ×2 (08:49→19:36)
[2025-03-20] MEDS: CLARITIN 10 MG PO (08:49)
[2025-03-20] MEDS: THERAGRAN 1 TABLET PO (08:49)
[2025-03-20] MEDS: VITAMIN B-12 1000 MCG PO (08:49)
[2025-03-20] MEDS: NON-FORMULARY ITEM 1 DOSE BOTH EYES (08:50)
--- NOTE | 2025-03-20 08:50 | W.PN.CRS1 ---
Today's Communication / Plan
-
As below
Assessment/Plan
-
69yo female with PMH of GERD, temporal arteritis, hypothyroidism, fibromyalgia, arthritis and recent colostomy reversal with diverting loop ileostomy creation (03/05/2025), presents from clinic due to an abscess near her ileostomy site
S/p IR drain of right sided abscess, aspiration of left-sided abscess
AFVSS, ostomy output 1.3 L
WBC 4.4, Hb stable, CR 0.6
� Continue regular diet
�Continue pain control with Tylenol and Dilaudid as needed
�Continue DVT PPx with Lovenox
� Strict I's/O; increased ostomy output, likely related to infectious process
�Decrease Imodium to 2 mg daily; ostomy output goal less than 1-1.2 L/day
�Hold IVF; repeat BMP in the morning
�Continue IV Unasyn, appreciate ID; awaiting sensitivities
� Appreciate hospitalist
Dispo�if electrolytes stable off IVF and ostomy output less than 1.2 L, okay for DC from colorectal standpoint; likely soonest tomorrow
Subjective Data
Subjective Data
Date of Service: March 20, 2025
No overnight events. Yesterday, patient had a salad and felt quite bloated. Ultimately, her ostomy output picked up again and the bloating resolved.
Pain controlled.
Denies nausea/vomiting. Tolerating diet.
+voiding
Pt is OOB.
Objective Data
-
Vital Signs
Temp Pulse Resp BP Pulse Ox
98.2 F 69 16 128/68 97
03/20/25 08:38 03/20/25 08:38 03/20/25 08:38 03/20/25 08:38 03/20/25 08:38
Intake & Output
03/19/25 03/20/25 03/21/25
06:59 06:59 06:59
Intake Total 1964 / 1964 1496 / 1496
Output Total 1175 / 1175 1295 / 1295
Balance 790 / 790 201 / 201
Intake:
Oral fluids 1140 / 1140 780 / 780
IV fluids (Total) 580 / 580 471 / 471
IV piggybacks 240 / 240 240 / 240
Amount instilled into Drain (
Total)
Left Abdomen Placed in IR
Output:
Liquid stool amount 1175 / 1175 1275 / 1275
Ileostomy 1175 / 1175 1275 / 1275
Drain Output (Total)
Left Abdomen Placed in IR
Other:
How many times incontinent 1
MODERATE amount urine
Number of approximated SMALL 1
amounts of urine
Number of approximated MODERATE 1 3
amounts of urine
Lab Results
03/20/25 05:58
03/20/25 05:58
Physical Exam
-
General: No Acute Distress and AOx3
HEENT: Grossly Normal
Abdomen: Soft, Non Distended, Tender (Nontender), No Guarding, No Rebound and Other (Ostomy pink and productive of succus; TROY-scant serosanguineous)
Skin: Warm and Dry
Wound: No Signs of Infection and No Skin Erythema
--- NOTE | 2025-03-20 10:50 | WOUNDNOTE ---
[facility] RN Note: Patient changed her appliance yesterday using [place] soft convex cut to fit wafer # [id number], Roseanna seal and [place] high output pouch # [id number]. Patient stated her output has slowed some since taking the Imodium. More convex wafers,
Roseanna seals and high output pouches given. Will sign off. Call if needed.
--- NOTE | 2025-03-20 11:38 | W.PN.ID1 ---
Date of Service
Date of Service: March 20, 2025
Today's Communication
On discharge can transition to augmentin 875/125 mg PO BID for a two week course 03/17-03/30
would typically hold actemra while on antibiotics, no objection to steroids; ultimately management of giant cell arteritis per her operating room manager
Assessment / Plan
Abdominal wall abscess
- Cultures with viridans strep, K pneumoniae
Fibromyalgia
HTN
Giant cell arteritis
Glaucoma
Diverticulitis
Pyoderma gangrenosum
Recommendations:
Viridans strep and K pneumoniae
Continue with Unasyn while inpatient
On discharge can transition to augmentin 875/125 mg PO BID for a two week course 03/17-03/30
would typically hold actemra while on antibiotics, no objection to steroids; ultimately management of giant cell arteritis per her operating room manager
Continue supportive measures.
Chief Complaint
-: Other (Abdominal wall abscess)
Subjective / Review of Systems
afebrile
bp stable
pain is controlled
drain output cloudy serosanguinous
Vital Signs / Physical Exam
Vital Signs
Vital Signs
Temp Pulse Resp BP Pulse Ox
98.2 F 69 16 128/68 97
03/20/25 08:38 03/20/25 08:38 03/20/25 08:38 03/20/25 08:38 03/20/25 10:10
Physical Exam
Constitutional: No Acute Distress
Cardiovascular: Regular Rate and S1/S2; Negative Murmur or Rub
Pulmonary: Clear and Symmetric; Negative Wheezes or Rales
Gastrointestinal: Soft, Non Tender, Non Distended and Normal Bowel Sounds
Skin: Warm, Dry and Other (stoma pink - loose brown stool); Negative Rash or Jaundice
Lines: Other (drain - cloudy serosanguinous fluid)
Objective Data
Lab Data
Lab Results
03/20/25 05:58
03/20/25 05:58
Estimated Creat Clear 73 ml/min 03/20/25 05:58
Lactic Acid 2.0 mmol/L (0.7-2.0) 03/16/25 10:40
Total Bilirubin 0.3 mg/dl (0.2-1.3) 03/20/25 05:58
AST 24 U/L (14-36) 03/20/25 05:58
ALT 26 U/L (0-35) 03/20/25 05:58
Alkaline Phosphatase 70 U/L (38-126) 03/20/25 05:58
Most recent labs reviewed.
Wound/abscess/other Cult Final 03/20/25-804
Rare Klebsiella pneumoniae
Moderate Viridans Streptococcus Group
Penicillin G or V with or without Gentamicin is the drug of
choice for treating Viridans Streptococcus Group. Please
notify the Microbiology Laboratory within 72 hours if
additional testing is needed.
Organism 1 Klebsiella pneumoniae
1. Klebsiella pneumoniae
M.I.C. RX
--------- ---
Amoxicillin/Potas. Clavulanate <=8/4 S
Ampicillin >16 R
Ampicillin/Sulbactam 8/4 S
Aztreonam <=4 S
Cefazolin <=2 S
Ertapenem <=0.5 S
Ciprofloxacin <=0.25 S
Gentamicin <=2 S
Meropenem <=1 S
Piperacillin/Tazobactam <=8 S
Tetracycline <=4 S
Tobramycin <=2 S
Trimethoprim/Sulfamethoxazole <=2/38 S
Micro Results:
03/17/25 15:45 Wound Culture - Preliminary
Abdomen Gram Stain - Preliminary
03/17/25 15:45 Wound Culture - Final
Abdomen Klebsiella pneumoniae
Viridans Streptococcus Group
Gram Stain - Final
Imaging:
03/16/2025 CT abdomen/pelvis with contrast: there is a 5.3 cm right anterior abdominal wall abscess (versus seroma) located medial and inferior to the right anterior abdominal wall ileostomy. There is also a 2.8 cm left anterior abdominal wall
abscess (or seroma). There is a moderate to large amount of soft tissue emphysema throughout the anterior abdominal wall. Mild diffuse wall thickening and some mucosal edema throughout the colon. Please see full dictation for additional detail.
Film personally viewed.
--- NOTE | 2025-03-20 12:00 | W.PN.HOSP.TC ---
Today's Communication/Plan
-
Monitor vital signs and see plan
Continue Imodium per colorectal
Continue antibiotic
Restart leflunomide if okay from colorectal and infectious standpoint
Assessment / Plan
Assessment / Plan
General: Well Developed, Well Nourished and No Apparent Distress
HEENT: NormoCephalic, Moist mucous membranes and Atraumatic
Respiratory: Clear
Cardiac: S1/S2 and Regular Rhythm; No Murmur or Rub
GI: Soft, Non Tender, Non Distended, Normal Bowel Sounds and Ostomy,+ drain
Neuro: AO x 3 and Nonfocal/grossly intact
Psych: Calm
Suspected ileostomy infection
- Underwent colostomy with stoma creation on 03/05
# History of diverticulitis
- CT abdomen pelvis on admission with right anterior abdominal wall abscess or seroma located medial and inferior to a right anterior abdominal wall ileostomy and 2.8 cm left anterior abdominal wall abscess (or seroma)
Colorectal surgery following
Status post IR drain, follow cultures. ID following
Now on Unasyn, follow-up culture from abscess. Growing viridans strep, klebsiella
MAYE
cw gentle hydration
Monitor, MAYE resolved however given low blood pressure will continue to hold losartan
Hold losartan
# Essential hypertension
- Continue Norvasc with holding parameter
# Depression
- Duloxetine continued
# Hypothyroidism
- Levothyroxine continue
# History of giant cell arteritis
- Actemra, leflunomide on hold as per surgery due to active infection; restart when ok from infectious standpoint
History of polymyalgia rheumatica
# DVT prophylaxis
- Lovenox
# CODE STATUS
- Full code
Anticipated Discharge: Within 24 hours
Subjective/Interval History
-
Date of Service: March 20, 2025
Denies nausea
Objective Data
-
Labs:
Laboratory Results
03/20/25
05:58
WBC 4.4 L
Hgb 11.3 L
Hct 34.1 L
Plt Count 262
Sodium 142
Potassium 3.9
Chloride 112 H
Carbon Dioxide 26
BUN 11
Creatinine 0.6
Glucose 84
Calcium 8.9
Total Bilirubin 0.3
AST 24
ALT 26
Alkaline Phosphatase 70
Vital Signs:
Vital Signs
Temp Pulse Resp BP Pulse Ox
98.2 F 69 16 128/68 97
03/20/25 08:38 03/20/25 08:38 03/20/25 08:38 03/20/25 08:38 03/20/25 10:10
I&O
03/19/25 03/20/25 03/21/25
06:59 06:59 06:59
Intake Total 1965 / 1965 1496 / 1496
Output Total 1175 / 1175 1295 / 1295
Balance 790 / 790 201 / 201
--- NOTE | 2025-03-20 13:57 | CM ---
CM following re: discharge planning.
Reviewed pt's chart, met with pt and pt's at bedside.
Pt is current with [facility]. [facility] liaison following, RN for ileostomy care
D/C plan: home with [facility] and family support. to transport at discharge.
CM will follow with discharge plan updates as needed.
[2025-03-20 15:47] VITALS: BP 115/82
[2025-03-20] MEDS: LOVENOX 40 MG SC (18:04)
[2025-03-20] MEDS: LOW STRENGTH ASPIRIN 81 MG PO (21:25)
[2025-03-20] MEDS: SYNTHROID 50 MCG PO (21:25)
[2025-03-20] MEDS: CYMBALTA DELAYED RELEASE 20 MG PO (21:25)
[2025-03-20] MEDS: NORVASC 5 MG PO (21:28)
[2025-03-21 00:01] VITALS: BP 132/75
[2025-03-21] MEDS: UNASYN IV ×4 (03:20→22:44)
[2025-03-21 07:46] LABS: Hematocrit 35.1 % (37.0-47.0); Hemoglobin 11.8 g/dL (12.0-16.0); Mean Corp Hgb Conc. 33.6 g/dL (33.0-37.0); Mean Corpuscular Volume 93.4 fL (81.0-99.0); Nucleated Red Blood Cells % 0 %; Platelet Count 270 10^3/uL (130-400); Red Cell Dist. Width 12.1 % (11.5-14.5)
[2025-03-21 07:51] VITALS: BP 115/66
[2025-03-21 07:56] LABS: ALT (SGPT) 32 U/L (0-35); AST (SGOT) 29 U/L (14-36); Albumin 3.6 g/dl (3.5-5.0); Alkaline Phosphatase 67 U/L (38-126); Blood Urea Nitrogen 12 mg/dl (7-17); Calcium 9.5 mg/dl (8.4-10.2); Carbon Dioxide 27 mmol/L (22-30); Chloride 107 mmol/L (98-107); Estimated Creatinine Clearance 73 ml/min; Glucose 85 mg/dl (70-99); Potassium 3.8 mmol/L (3.5-5.1); Sodium 138 mmol/L (135-145); Total Protein 6.1 g/dl (6.3-8.2); eGFR > 60.00
[2025-03-21] MEDS: VITAMIN B-12 1000 MCG PO (08:05)
[2025-03-21] MEDS: CLARITIN 10 MG PO (08:06)
[2025-03-21] MEDS: IMODIUM 2 MG PO ×2 (08:06→20:42)
[2025-03-21] MEDS: THERAGRAN 1 TABLET PO (08:06)
[2025-03-21] MEDS: OSCAL CAL 500 500 MG PO ×2 (08:06→20:41)
[2025-03-21] MEDS: NON-FORMULARY ITEM 1 DOSE BOTH EYES (08:07)
[2025-03-21] MEDS: TYLENOL 650 MG PO (08:12)
--- NOTE | 2025-03-21 09:09 | W.PN.CRS1 ---
Addendum entered and electronically signed by Manish Nascimento MD 03/21/25 13:06:
Patient seen and examined in follow-up with surgical PA. Agree with documented progress note.
Patient offers no specific concerns or questions. Denies significant abdominal pain.
Tolerating dietary intake.
AFVSS
NAD AAO x 3
ABD: Soft, mild tenderness palpation. Right sided ileostomy with liquid stool and gas in appliance.
IR drain with purulent like fluid.
A/P: Currently on Unasyn with plan to transition to oral Augmentin
Monitor ileostomy outputs, possible DC if stable/improved adjustment in Imodium
Original Note:
Today's Communication / Plan
-
increase immodium
Assessment/Plan
-
69yo female with PMH of GERD, temporal arteritis, hypothyroidism, fibromyalgia, arthritis and recent colostomy reversal with diverting loop ileostomy creation (03/05/2025), presents from clinic due to an abscess near her ileostomy site
S/p IR drain of right sided abscess, aspiration of left-sided abscess
AFVSS, ostomy output 1.4L
WBC 4.4, Hb stable, CR 0.6
� Continue regular diet
�Continue pain control with Tylenol and Dilaudid as needed
�Continue DVT PPx with Lovenox
� Strict I's/O; increased ostomy output, likely related to infectious process
�Increase Imodium to 2 mg BID; ostomy output goal less than 1-1.2 L/day
�Hold IVF; repeat BMP in the morning
�Continue IV Unasyn, appreciate ID; awaiting sensitivities
� Appreciate hospitalist
Dispo�if output less than 1.2 L, okay for DC from colorectal standpoint
Subjective Data
Subjective Data
Date of Service: March 21, 2025
Patient states she feels well. She had a brief episode of nausea last night that resolved. She is tolerating a diet. Voiding without difficulty. She has no pain. Her ileostomy is putting out liquid stool.
Objective Data
-
Vital Signs
Temp Pulse Resp BP Pulse Ox
98.5 F 69 18 115/66 97
03/21/25 07:51 03/21/25 07:51 03/21/25 07:51 03/21/25 07:51 03/21/25 07:51
Intake & Output
03/20/25 03/21/25 03/22/25
06:59 06:59 06:59
Intake Total 1496 / 1496 240 / 240
Output Total 1295 / 1295 987 / 987 200 / 200
Balance 201 / 201 -747 / -747 -200 / -200
Intake:
Oral fluids 780 / 780
IV fluids (Total) 471 / 471
IV piggybacks 240 / 240 240 / 240
Amount instilled into Drain ( 5 / 5
Total)
Left Abdomen Placed in IR
Output:
Liquid stool amount 1275 / 1275 965 / 965 200 / 200
Ileostomy 1275 / 1275 965 / 965 200 / 200
Drain Output (Total)
Left Abdomen Placed in IR
Other:
Number of approximated SMALL 1
amounts of urine
Number of approximated MODERATE 3
amounts of urine
Lab Results
03/21/25 07:02
03/21/25 07:02
Physical Exam
-
General: No Acute Distress and AOx3
Abdomen: Soft, Non Distended, Non Tender and Other (ileostomy warm and pink with liquid output)
Skin: Warm and Dry
Incision: Clear, Dry, Intact
--- NOTE | 2025-03-21 12:09 | W.PN.HOSP.TC ---
Today's Communication/Plan
-
monitor vitals
see plan
Imodium per CRS
cw abx
Assessment / Plan
Assessment / Plan
General: Well Developed, Well Nourished and No Apparent Distress
HEENT: NormoCephalic, Moist mucous membranes and Atraumatic
Respiratory: Clear
Cardiac: S1/S2 and Regular Rhythm; No Murmur or Rub
GI: Soft, Non Tender, Non Distended, Normal Bowel Sounds and Ostomy,+ drain
Neuro: AO x 3 and Nonfocal/grossly intact
Psych: Calm
Suspected ileostomy infection
- Underwent colostomy with stoma creation on 03/05
# History of diverticulitis
- CT abdomen pelvis on admission with right anterior abdominal wall abscess or seroma located medial and inferior to a right anterior abdominal wall ileostomy and 2.8 cm left anterior abdominal wall abscess (or seroma)
Colorectal surgery following
Status post IR drain, follow cultures. ID following
Now on Unasyn, follow-up culture from abscess. Growing viridans strep, klebsiella
Per ID transition to Augmentin for 2-week course on discharge through 03/30
Still with high ostomy output, increased ammonia
MAYE
cw gentle hydration
Monitor, MAYE resolved however given low blood pressure will continue to hold losartan
Hold losartan, restart when blood pressure is high
# Essential hypertension
- Continue Norvasc with holding parameter
# Depression
- Duloxetine continued
# Hypothyroidism
- Levothyroxine continue
# History of giant cell arteritis
- Actemra, leflunomide on hold as per surgery due to active infection; restart when ok from rheumatology standpoint
History of polymyalgia rheumatica
# DVT prophylaxis
- Lovenox
# CODE STATUS
- Full code
Anticipated Discharge: Within 24 hours
Subjective/Interval History
-
Date of Service: March 21, 2025
Denies pain
Objective Data
-
Labs:
Laboratory Results
03/21/25
07:02
WBC 4.4 L
Hgb 11.8 L
Hct 35.1 L
Plt Count 270
Sodium 138
Potassium 3.8
Chloride 107
Carbon Dioxide 27
BUN 12
Creatinine 0.6
Glucose 85
Calcium 9.5
Total Bilirubin 0.5
AST 29
ALT 32
Alkaline Phosphatase 67
Vital Signs:
Vital Signs
Temp Pulse Resp BP Pulse Ox
98.5 F 69 18 115/66 97
03/21/25 07:51 03/21/25 07:51 03/21/25 07:51 03/21/25 07:51 03/21/25 07:51
I&O
03/20/25 03/21/25 03/22/25
06:59 06:59 06:59
Intake Total 1496 / 1496 240 / 240
Output Total 1295 / 1295 987 / 987 300 / 300
Balance 201 / 201 -747 / -747 -300 / -300
[2025-03-21 15:10] VITALS: BP 113/69
[2025-03-21] MEDS: LOVENOX 40 MG SC (16:55)
[2025-03-21] MEDS: CYMBALTA DELAYED RELEASE 20 MG PO (20:35)
[2025-03-21] MEDS: SYNTHROID 50 MCG PO (20:39)
[2025-03-21] MEDS: NORVASC 5 MG PO (20:41)
[2025-03-21] MEDS: LOW STRENGTH ASPIRIN 81 MG PO (20:41)
[2025-03-21 23:29] VITALS: BP 123/64
[2025-03-22] MEDS: UNASYN IV ×2 (04:00→11:06)
[2025-03-22] MEDS: VITAMIN B-12 1000 MCG PO (08:08)
[2025-03-22] MEDS: OSCAL CAL 500 500 MG PO (08:09)
[2025-03-22] MEDS: IMODIUM 2 MG PO (08:09)
[2025-03-22] MEDS: THERAGRAN 1 TABLET PO (08:09)
[2025-03-22] MEDS: CLARITIN 10 MG PO (08:09)
[2025-03-22] MEDS: NON-FORMULARY ITEM 1 DOSE BOTH EYES (08:11)
[2025-03-22 08:22] VITALS: BP 131/64
--- NOTE | 2025-03-22 08:34 | W.PN.CRS1 ---
Addendum entered and electronically signed by Manish Nascimento MD 03/22/25 09:15:
Patient seen and examined with surgical PA. Agree with documented progress note.
AFVSS
NAD AAO x 3
ABD: Right-sided ileostomy with pink mucosa and appliance well-seated on the skin. Some induration but no fluctuance.
IR drain with midline and skin exit site. Dressing changed. Bulb with purulent fluid, minimal quantity
Left sided old ostomy site healing well. No fluctuance, no erythema.
No significant tenderness on palpation
Appears medically/surgically stable for discharge and patient feels ready for discharge.
Ileostomy outputs manageable.
DC home with IR drain in place
Original Note:
Today's Communication / Plan
-
discharge
continue imodium as an outpatient
Assessment/Plan
-
69yo female with PMH of GERD, temporal arteritis, hypothyroidism, fibromyalgia, arthritis and recent colostomy reversal with diverting loop ileostomy creation (03/05/2025), presents from clinic due to an abscess near her ileostomy site
S/p IR drain of right sided abscess, aspiration of left-sided abscess
AFVSS, ostomy output 1215ml
Labs pending
� Continue regular diet
�Continue pain control with Tylenol and Dilaudid as needed
�Continue DVT PPx with Lovenox
� Strict I's/O; increased ostomy output, likely related to infectious process
�Imodium to 2 mg BID; ostomy output goal less than 1-1.2 L/day
�Continue IV Unasyn, appreciate ID; awaiting sensitivities
� Appreciate hospitalist
Dispo�if output less than 1.2 L, okay for DC from colorectal standpoint. Okay for discharge from our perspective today if electrolytes are okay. Discussed with patient regarding tapering up imodium if needed. Follow up with Dr. Link in 1 week from
discharge.
Subjective Data
Subjective Data
Date of Service: March 22, 2025
Patient states she feels well. Her ileostomy output is less.
Objective Data
-
Vital Signs
Temp Pulse Resp BP Pulse Ox
98.1 F 75 18 131/64 99
03/22/25 08:22 03/22/25 08:22 03/22/25 08:22 03/22/25 08:22 03/22/25 08:22
Intake & Output
03/21/25 03/22/25 03/23/25
06:59 06:59 06:59
Intake Total 240 / 240 960 / 960
Output Total 987 / 987 1216 / 1216
Balance -747 / -747 -256 / -256
Intake:
Oral fluids 960 / 960
IV piggybacks 240 / 240
Output:
Liquid stool amount 965 / 965 1215 / 1215
Ileostomy 965 / 965 1215 / 1215
Drain Output (Total)
Left Abdomen Placed in IR
Other:
Number of approximated MODERATE 2
amounts of urine
Physical Exam
-
General: No Acute Distress and AOx3
Abdomen: Soft, Non Distended, Non Tender and Other (IR drain with serosanguinous output)
Wound: Dressing in Place
[2025-03-22 09:26] LABS: Hematocrit 37.3 % (37.0-47.0); Hemoglobin 11.8 g/dL (12.0-16.0); Mean Corp Hgb Conc. 31.6 g/dL (33.0-37.0); Mean Corpuscular Volume 97.9 fL (81.0-99.0); Nucleated Red Blood Cells % 0 %; Platelet Count 275 10^3/uL (130-400); Red Cell Dist. Width 12.2 % (11.5-14.5)
[2025-03-22 09:42] LABS: ALT (SGPT) 38 U/L (0-35); AST (SGOT) 36 U/L (14-36); Albumin 3.7 g/dl (3.5-5.0); Alkaline Phosphatase 64 U/L (38-126); Blood Urea Nitrogen 13 mg/dl (7-17); Calcium 9.4 mg/dl (8.4-10.2); Carbon Dioxide 27 mmol/L (22-30); Chloride 106 mmol/L (98-107); Estimated Creatinine Clearance 63 ml/min; Glucose 97 mg/dl (70-99); Potassium 3.7 mmol/L (3.5-5.1); Sodium 140 mmol/L (135-145); Total Protein 6.1 g/dl (6.3-8.2); eGFR > 60.00
--- NOTE | 2025-03-22 11:02 | W.PN.HOSP.TC ---
Today's Communication/Plan
-
monitor vitals
see plan
dc today on PO abx
maintain drain per IR and CRS
time of discharge 38minutes
Assessment / Plan
Assessment / Plan
General: Well Developed, Well Nourished and No Apparent Distress
HEENT: NormoCephalic, Moist mucous membranes and Atraumatic
Respiratory: Clear
Cardiac: S1/S2 and Regular Rhythm; No Murmur or Rub
GI: Soft, Non Tender, Non Distended, Normal Bowel Sounds and Ostomy,+ drain
Neuro: AO x 3 and Nonfocal/grossly intact
Psych: Calm
Suspected ileostomy infection
- Underwent colostomy with stoma creation on 03/05
# History of diverticulitis
- CT abdomen pelvis on admission with right anterior abdominal wall abscess or seroma located medial and inferior to a right anterior abdominal wall ileostomy and 2.8 cm left anterior abdominal wall abscess (or seroma)
Colorectal surgery following
Status post IR drain, follow cultures. ID following
Now on Unasyn, follow-up culture from abscess. Growing viridans strep, klebsiella
Per ID transition to Augmentin for 2-week course on discharge through 03/30
now with better ostomy output, increased imodium
MAYE
cw gentle hydration
Monitor, MAYE resolved however given low blood pressure will continue to hold losartan
Hold losartan, restart when blood pressure is high
# Essential hypertension
- Continue Norvasc with holding parameter
# Depression
- Duloxetine continued
# Hypothyroidism
- Levothyroxine continue
# History of giant cell arteritis
- Actemra, leflunomide on hold as per surgery due to active infection; restart when ok from rheumatology standpoint
History of polymyalgia rheumatica
# DVT prophylaxis
- Lovenox
# CODE STATUS
- Full code
Anticipated Discharge: Today
Subjective/Interval History
-
Date of Service: March 22, 2025
denies pain
Objective Data
-
Labs:
Laboratory Results
03/22/25
08:44
WBC 5.2
Hgb 11.8 L
Hct 37.3
Plt Count 275
Sodium 140
Potassium 3.7
Chloride 106
Carbon Dioxide 27
BUN 13
Creatinine 0.7
Glucose 97
Calcium 9.4
Total Bilirubin 0.4
AST 36
ALT 38 H
Alkaline Phosphatase 64
Vital Signs:
Vital Signs
Temp Pulse Resp BP Pulse Ox
98.1 F 75 18 131/64 99
03/22/25 08:22 03/22/25 08:22 03/22/25 08:22 03/22/25 08:22 03/22/25 08:22
I&O
03/21/25 03/22/25 03/23/25
06:59 06:59 06:59
Intake Total 240 / 240 960 / 960
Output Total 987 / 987 1216 / 1216
Balance -747 / -747 -256 / -256
--- NOTE | 2025-03-23 11:39 | W.DCSUMMARY ---
Discharge Summary
Discharge Data
Date of Admission: 03/05/25
Date of Discharge: 03/09/25
-
Pending Results: Yes
Additional Pending Results:
OR pathology
Hospital Course
This is 69-year-old female presents to [facility] for a scheduled robotic colostomy takedown and ileostomy due to a history of colostomy secondary to diverticulitis. This was performed on 03/05/[address] Rigoberto Link. Postoperatively the
patient had a Zhong in her bladder and a 19 Napoleon drain placed. She also had stents placed preoperatively for our planning by Dr. Atkinson with urology. Postoperatively 1 stent was removed the patient was brought back to the medical surgical floor.
On postop day 1 her diet was advanced to clears. She was out of bed with physical therapy and Occupational Therapy. Her home medication of Actemra and her other immunologic drug were both held. On postop day 2 the patient's diet was advanced to
regular. The Zhong was removed and she was voiding. Wound nurse was consulted for ileostomy teaching. On postop day 4 the patient had good stoma function. Her vitals and labs were normal. It was determined the patient to be discharged home with
visiting nurse. All discharge instructions discussed the patient include medications activity level and follow-up. All questions were addressed.
Discharge Plan
-
Patient Disposition: Home (Routine Discharge)
Discharge Diagnosis/Procedures: Abdominal abscess s/p IR drain of right sided abscess, aspiration of left-sided abscess
MAYE
Diet: Regular
Activity: No strenuous activity
Additional Activity: No lifting over 10lbs (gallon of milk)
Driving Restrictions: No driving for 1 week
Bathing Restrictions: OK to Shower
Wound Care: Change dressing around the drain daily and as needed. Okay to remove to shower. Record drain output daily and bring the output list to your appointment with Dr. Link.
Activity Restrictions/Additional Instructions:
Ileostomy supplies: [place] soft convex cut to fit wafer #[id number], [place]anna seal, [place] high output pouch # [id number]. Change 2 times a week and as needed for leakage.
Call supply company (list in folder provided) for monthly Ostomy supplies after discharge (ask [facility] to order supplies while on service).
Follow up with surgeon.
Call [facility] RN nurse for ostomy pouching concerns or leakage problems [phone] or [phone] or [phone].
Instructions: Loperamide, How to care for a closed suction drain
Referrals:
Rigoberto Link MD [Active, ColoRectal] - in one week
Aleksandr Trinh MD [Family Provider, Family Practice] - in less than 1 week
Prescriptions:
New
acetaminophen 325 mg Tablet
650 mg PO Q4HPRN PRN (Reason: mild pain/GIMENEZ/temp> 100.4F) Qty: 0 0RF
loperamide 2 mg Capsule
2 mg PO BID Qty: 0 0RF
amoxicillin-pot clavulanate 875-125 mg tablet
1 tab PO BID Qty: 18 0RF
sodium chloride 0.9 % (flush) [Normal Saline Flush] Syringe
5 ml IV DAILY 30 Days Qty: 200 0RF
Rx Instructions:
5mL syringes
Continued
levothyroxine 50 MCG tablet
50 mcg PO HS
aspirin 81 MG tablet,chewable
81 mg PO HS
cyanocobalamin (vitamin B-12) 1,000 mcg Tablet
1,000 mcg PO DAILY Qty: 0
amlodipine 5 mg Tablet
5 mg PO HS
calcium carbonate 500 mg calcium (1,250 mg) Tablet
500 mg PO BID Qty: 0
loratadine [Claritin] 10 mg Tablet
10 mg PO DAILY
duloxetine 20 mg Capsule,Delayed Release(Dr/Ec)
20 mg PO HS
Compound Eye Drop
1 dose BOTH EYES DAILY
mometasone
1 mg intranasal DAILY
Artificial Tears (cmc) 1 % Drops
1 drp BOTH EYES BIDPRN PRN (Reason: dry eye)
therapeutic multivitamin Tablet
1 tab PO DAILY
hydromorphone [Dilaudid] 4 mg tablet
4 mg PO Q6HPRN PRN (Reason: SEVERE Pain)
Held
Actemra 200 MG/10 ML solution
162 mg SC Q4W
Hold Instructions: restart when ok with rheumatology
losartan 100 mg Tablet
100 mg PO DAILY
Hold Instructions: restart when BP >140/90
Discontinued
sulfamethoxazole-trimethoprim [Bactrim DS] 800-160 mg Tablet
1 tab PO BID
Rx Instructions:
FOR 10 DAYS STARTING 03/13/25
Discharge Orders:
Discharge Patient (As Directed); Ordered 03/22/25
Ordered By: Tray Gillis
Discharge Date and Time
Discharge Date/Time: 03/22/25 16:03
Print Language: BARBADIAN
== END 2025-03-22 16:03 | disposition home health service (06) | DRG 863 ==
LOC: 2 NORTH 14:57
PROVIDERS: Emergency Medicine; Radiology Vascular & Interventional Radiology; Registered Nurse; ADMITTING PHYSICIAN Hospitalist; ATTENDING PHYSICIAN Internal Medicine; CONSULT PHYSICIAN Surgery; EMERGENCY PHYSICIAN Emergency Medicine; FAMILY PHYSICIAN Family Medicine; OTHER PHYSICIAN Internal Medicine Infectious Disease
PROC: 0W9F30Z Drainage of Abdominal Wall with Drainage Device, Percutaneous Approach (ICD-10-PCS; 2025-03-17)
DX: T81.41XA Infection following a procedure, superficial incisional surgical site, initial encounter (principal); L02.211 Cutaneous abscess of abdominal wall; L88 Pyoderma gangrenosum; N17.9 Acute kidney failure, unspecified; D84.9 Immunodeficiency, unspecified; E03.9 Hypothyroidism, unspecified; F32.A Depression, unspecified; I10 Essential (primary) hypertension; M31.6 Other giant cell arteritis; G62.9 Polyneuropathy, unspecified; M79.7 Fibromyalgia; H40.9 Unspecified glaucoma; Z79.890 Hormone replacement therapy; Z79.899 Other long term (current) drug therapy; Z87.891 Personal history of nicotine dependence
CPT/HCPCS: 49406; 74177; 80048; 80053; 83605; 85025; 85027; 87070; 87077; 87147; 87186; 87205; 96374; 99152; 99153; 99285; Q9967